=== PATIENT | male | born 1990 | race Caucasian/White ===

== ENCOUNTER → 2018-02-07 14:41 | Outpatient (CLI) | payer BC, SELFPAY ==
[2018-02-07 17:08] LABS: ALB/GLOB Ratio 1.1 RATIO (0.9-2.4); AST(SGOT) 9 U/L (15-37); Alanine Aminotransfer ALT/SGPT 20 U/L (16-61); Alkaline Phosphatase 95 U/L (45-117); Anion Gap 6 (5-15); BUN 16 mg/dL (7-18); BUN/Creat Ratio 18.7 RATIO (10-20); Calcium,Total 8.9 mg/dL (8.5-10.1); Chloride 105 mmol/L (98-107); Cholesterol 155 mg/dL (200); Creatinine, Serum 0.86 mg/dL (0.70-1.30); EST Glomerular Filtration Rate 115 mL/min (>60); Est Glom Filt Rate - Afr Amer 139 mL/min (>60); Globulin 3.5 g/dL (2.2-4.2); Glucose 243 mg/dL (74-106); High Density Lipoprotein 53 mg/dL; Potassium 4.2 mmol/L (3.5-5.1); Protein, Total 7.5 g/dL (6.4-8.2); Sodium Level 141 mmol/L (136-145); Triglycerides 53 mg/dL; Very Low Density Lipoprotein 11 mg/dL (5-40)
[2018-02-07 21:04] LABS: Microalbumin,Random Urine 18.7 mg/L (NO RANGE EST.); Microalbumin:Creatinine Ratio 10.3 mg/g CRE (<30 mg/g CRE)
[2018-02-07 21:32] LABS: Hemoglobin A1c 9.3 % (4.2-6.3)
== END ==
PROVIDERS: Visit Provider Nurse Practitioner
DX: E10.65 Type 1 diabetes mellitus with hyperglycemia (principal)
CPT/HCPCS: 36415; 80053; 80061; 82043; 82570; 83036

== ENCOUNTER 2018-04-08 20:16 | Emergency (ER) | payer BC, SELFPAY ==
[2018-04-08 20:16] VITALS: BP 141/83; PULSE 76; RESP 18; TEMP 36.9; O2SAT 98; BMI 25.7
--- NOTE | 2018-04-08 20:24 | ED.RN ---
RN CALLED FOR EKG, NO OLD EKGS IN MUSE
--- NOTE | 2018-04-08 20:30 | EKG12_ITS ---
Test Reason : CP Blood Pressure : / mmHG Vent. Rate : 080 BPM Atrial Rate : 080 BPM P-R Int : 150 ms QRS Dur : 084 ms QT Int : 372 ms P-R-T Axes : 049 048 019 degrees QTc Int : 429 ms Normal sinus rhythm Normal ECG Confirmed by AUDI OJEDA, EARL ([id number]), city editor YESSENIA CURTIS ([id number]) on 04/11/2018 9:02:38 AM Referred By: MARLENE Confirmed By:EARL HUNTLEY MD
--- NOTE | 2018-04-08 20:34 | RAD_ITS ---
STUDY: X-RAY CHEST REASON FOR EXAM: Male, 28 years old. Chest pain TECHNIQUE: Frontal view of the chest COMPARISON: None. FINDINGS: The lungs are clear. There are no pleural effusions. There is no pneumothorax. The heart is normal in size. The visualized osseous structures are within normal limits. RAD/Chest 1 View (Portable) IMPRESSION: No acute thoracic pathology. Electronically Signed: Aki Smith, at 20:51 EDT Tel , Service support ,
[2018-04-08 20:55] LABS: Absolute Lymphocyte Count 2.56 X10^3/ul (0.83-4.51); Absolute Neutrophil Count 3.3 X10^3/uL (2.0-7.7); Basophil# 0.02 X10^3/uL; Basophil% 0.3 % (0-1); Eosinophil# 0.06 X10^3/uL; Eosinophils% 0.9 % (0-5); Hematocrit 44.6 % (40-54); Hemoglobin 15.5 g/dl (13.0-16.5); Lymphocyte # 2.56 X10^3/ul (4.0); Lymphocyte % 38.9 % (19-41); Mean Corp Hgb Conc 34.8 g/gl (32-36); Mean Corpuscular Hgb 30.3 pg (27.0-32.0); Mean Corpuscular Volume 87.1 fL (80-94); Mean Platelet Vol. 9.6 fl (6.2-12.0); Monocyte% 9.1 % (0-10); Neutrophil # 3.32 X10^3/uL (2.7-7.7); Neutrophil % 50.5 % (47-70); Platelet Count 269 K/mm3 (150-450); RBC Distribution Width CV 11.6 % (11.6-14.6); RBC Distribution Width SD 36.9 fl (35.1-43.9); Red Blood Count 5.12 M/mm3 (4.6-6.2); White Blood Count 6.6 K/mm3 (4.4-11.0)
[2018-04-08 20:56] LABS: POSITIVE COUNT NO; POSITIVE DIFFERENTIAL NO; POSITIVE MORPHOLOGY NO
[2018-04-08 21:11] LABS: Anion Gap 7 (5-15); BUN 11 mg/dL (7-18); BUN/Creat Ratio 14.5 RATIO (10-20); Calcium,Total 8.8 mg/dL (8.5-10.1); Chloride 104 mmol/L (98-107); Creatinine, Serum 0.76 mg/dL (0.70-1.30); EST Glomerular Filtration Rate 132 mL/min (>60); Est Glom Filt Rate - Afr Amer 159 mL/min (>60); Estimated Creatinine Clearance 156.88 ml/min; Glucose 88 mg/dL (74-106); Potassium 3.3 mmol/L (3.5-5.1); Sodium Level 138 mmol/L (136-145)
--- NOTE | 2018-04-08 21:20 | ED.VISSUMM ---
- ER Visit Summary Date of Service: 04/08/18 Chief Complaint: Chest pain History of Present Illness: The patient is a 28 M who presented with chest pain. This is been present since yesterday. It has been intermittent. He describes it as sharp and stabbing in the center of his chest. There are no exacerbating or relieving factors. He currently actually has no pain. At its worst it has been 8 out of 10. There is no associated nausea vomiting shortness of breath or diaphoresis. The current episode began about 4 hours ago. He is a type I diabetic but denies any other medical history. No recent travel surgery mobilization of prior DVT or PE. He is not a smoker. There is not a family history of heart disease. Physical Examination: Afebrile vitals are normal Moist mucous membranes Heart regular rate and rhythm Lungs are clear Abdomen soft Extremities nontender 2+ radial and dorsalis pedis pulses Alert Test Results: EKG shows sinus rhythm at a rate of 80. CBC BMP normal. Troponin negative. Chest x-ray shows no acute pathology. Emergency Department Course and Treatment: Patient has an unremarkable workup. He is currently pain-free. He has normal EKG. I do not believe this is due to cardiac ischemia. His description of symptoms is atypical. He was advised to follow-up as an outpatient. He is currently asymptomatic. He does understand return for new or worsening symptoms. He was discharged. Treatment Plan: [] Disposition: Discharge Impression: Chest pain This note was generated with [employer] dictation software. It may contain incorrect words, spelling, and punctuation that were not noted in review of the chart prior to signing ED Disposition - Plan for ED Patient: Chief Complaint: Chest Pain Referrals: Care Physician,No Primary [Primary Care Provider] -
--- NOTE | 2018-04-08 21:22 | ED.DEP ---
ED Disposition - Plan for ED Patient: Chief Complaint: Chest Pain Instructions: ED Chest Pain NonCardiac Referrals: Care Physician,No Primary [Primary Care Provider] -
[2018-04-08 21:27] VITALS: BP 135/74; PULSE 80; RESP 14; O2SAT 98
== END 2018-04-08 21:30 | disposition home or self-care (01) ==
PROVIDERS: Emergency Provider Emergency Medicine
DX: R07.9 Chest pain, unspecified (principal); E10.9 Type 1 diabetes mellitus without complications
CPT/HCPCS: 71045; 80048; 84484; 85025; 93005; 99284

== ENCOUNTER → 2018-06-14 16:58 | Outpatient (CLI) | payer BC, SELFPAY ==
[2018-06-14 16:02] VITALS: BMI 26.8
[2018-06-14 18:08] LABS: Hemoglobin A1c 8.8 % (4.2-6.3)
[2018-06-14 18:12] LABS: ALB/GLOB Ratio 1.3 RATIO (0.9-2.4); AST(SGOT) 12 U/L (15-37); Alanine Aminotransfer ALT/SGPT 17 U/L (16-61); Albumin, Serum 4.2 g/dL (3.2-5.0); Alkaline Phosphatase 65 U/L (45-117); Anion Gap 7 (5-15); BUN 13 mg/dL (7-18); BUN/Creat Ratio 13.9 RATIO (10-20); Chloride 103 mmol/L (98-107); Creatinine, Serum 0.94 mg/dL (0.70-1.30); EST Glomerular Filtration Rate 103 mL/min (>60); Est Glom Filt Rate - Afr Amer 125 mL/min (>60); Globulin 3.2 g/dL (2.2-4.2); Glucose 326 mg/dL (74-106); Potassium 4.3 mmol/L (3.5-5.1); Protein, Total 7.4 g/dL (6.4-8.2); Sodium Level 138 mmol/L (136-145)
[2018-06-14 18:13] LABS: Microalbumin,Random Urine 5.4 mg/L (NO RANGE EST.)
--- OUTSIDE RECORDS SUMMARY | 2018-08-09 23:02 | XMS RPT_ITS ---
:1990 Author Organization [facility] Care Team Providers Name Role Phone Danielle Segundo HUMAN MACHINE INTERFACE ENGINEER-C Attending Unavailable Primay Care Physicia, No Referring Unavailable Primay Care Physicia, No Primary Care Unavailable Danielle Segundo HUMAN MACHINE INTERFACE ENGINEER-C Attending Unavailable Danielle Segundo HUMAN MACHINE INTERFACE ENGINEER-C Referring Unavailable Primay Care Physicia, No Primary Care Unavailable Primay Care Physicia, No Primary Care Unavailable Mati Reyes Attending Unavailable Danielle Segundo HUMAN MACHINE INTERFACE ENGINEER-C Attending Unavailable Primay Care Physicia, No Referring Unavailable Danielle Segundo HUMAN MACHINE INTERFACE ENGINEER-C Attending Unavailable Danielle Segundo HUMAN MACHINE INTERFACE ENGINEER-C Referring Unavailable Primay Care Physicia, No Primary Care Unavailable PROBLEMS PROBLEMS DATE TYPE CONDITION / CODE ATTENDING STATUS SOURCE 06/14/2018 Unknown E10.9 - Type 1 Sanya Danielle Garza Active [place] diabetes mellitus HUMAN MACHINE INTERFACE ENGINEER-C Formerly [facility] without Hospital complications / Repository E10.9(ICD-10) 2018 Unknown E10.65 - Type 1 Danielle Segundo Active [place] diabetes mellitus HUMAN MACHINE INTERFACE ENGINEER-C Formerly [facility] with hyperglycemia Hospital / E10.65(ICD-10) Repository PROCEDURES PROCEDURES No Procedure Records FoundRESULTS RESULTS ENDOCRINOLOGY VISIT Observed: 06/17/2018 Status: F Source: [place] REPORT 4:47 PM [facility] [address] [place] [address]. [address] [place] [address] OFFICE VISIT Date of Service: 06/14/18 MR#: [id number] Acct: [id number] Name: ELOISA CORDOVA Rep #: [id number] : 1990 Provider: Danielle Segundo NP Age/Sex: 28/M [place] [facility] [place] Signed HPI History of present illness History of present illness Gayle Cordova is a 28 year old male who presents for follow up of diabetes type 1. Diagnosed in 2002. Seen last 01/2018 Continues on basaglar 26 units daily and meal insulin 10- 12 units per meal. Sliding scale as needed. Pt denies difficulty with injections or self monitoring of BG. Denies any signs of infection or irritation at site of injections. Reports taking insulin as directed Since our last visit he denies excessive thirst, increased frequency of urination, chest pain or dyspnea. Follows a diabetic diet, Is compliant with medication and is tolerating without side effects. At time of visit: -Pt denies symptoms of hypertensive emergency (CP,SOB,JEWELL, or blurred vision) and hypotension(dizziness or lightheadedness) -Pt denies symptoms of hypoglycemia ( sweaty, confusion, anxiety, tremor, hunger, palpitations) and hyperglycemia ( polydipsia, polyuria) -Pt denies potential medication adverse effect. Hypoglycemia Aware of hypoglycemia: When awake Able to self treat low BG: Yes Frequent low Blood sugar: No Has supply of glucagon: Yes Diet 3meals Carb counts Occ snacks SMBG 4 BG daily 70-150 average, checks pre meal Job is very physical Exam Const General: comfortable, well groomed Nutritional Appearance: well nourished Orientation: oriented x3 HENMT Head: normal to inspection, atraumatic Ears: hearing grossly normal bilaterally Nose: external nose normal Face and sinus: normal facial exam Mouth: oral mucosae normal, moist mucous membranes Teeth and gingiva: dentition normal Eyes Eyelids: eyelids normal Conjunctivae: conjunctivae normal Sclera: sclerae normal Pupils: PERRL Neck Neck: full ROM, normal visual inspection Neck mass: No Resp Effort AND Inspection: normal respiratory effort, able to speak in complete sentences, symmetric chest movement Auscultation: Bilateral: Clear to Auscultation Cardio Rate: regular rate Rhythm: regular rhythm Heart Sounds: S1 normal, S2 normal, no murmurs GI Inspection: normal to inspection Auscultation: normal bowel sounds Palpation: soft Skin General: no rashes or lesions noted Wounds: no wounds Diabetic Foot Pulses: L dorsalis pedis pulse: normal, R dorsalis pedis pulse: normal Monofilament test: Left foot: normal, Right foot: normal Neuro General: CN's II-XI intact bilaterally Extrem General: normal gait Psych Mood: congruent mood Affect: normal affect Speech and Movement: speech and movement normal Attitude: cooperative Thought Process: normal Thought Content: normal Judgment: judgment good Type: type 1, insulin-requiring Glucose control symptoms: Reports high fasting glucose and high post-meal glucose Weight and fatigue symptoms: Denies snoring Cardiopulmonary symptoms: Denies chest pain at rest, dyspnea on exertion, lightheadedness or myalgias GI symptoms: Denies constipation, diarrhea, nausea/dyspepsia or vomiting Skin and extremity symptoms: Denies erectile dysfunction, tingling/numbness/burning or foot ulcers Other symptoms: Denies blurry vision or change in vision Pertinent visit history: Denies recent visit to ER, recent hospital admission or recent DKA Intake Vital Signs06/14/18 Height 5 ft 11 in 06/14/18 Weight: 192 lb 8 oz 06/14/18 Body Mass Index (BMI) 26.8 06/14/18 Blood Pressure 128/80 H 06/14/18 Blood Pressure Location Lt popliteal 06/14/18 Blood Pressure Position Sitting Intake Visit Reasons: Diabetes follow-up Correctional Case Manager Required: No Accompanied by: Self Allergies No Known Allergies Allergy (Verified 06/14/18 16:01) Medications glucagon (human recombinant) 1 mg injection kit 1 mg IM ONCE #1 ea 02/07/18 [Rx Confirmed 06/14/18] Insulin Aspart [Novolog Flexpen] See Rx Instructions SUBCUT TIDCM 04/08/18 [History Confirmed 06/14/18] insulin glargine (U-100) 100 unit/mL (3 mL) subcutaneous pen 28 unit SC DAILY ml 06/14/18 [History Confirmed 06/14/18] Nurse's Note: blood sugars : low : 59 high : 350 [facility] Medical History Anxiety (Acute) Back problem (Acute) Chronic neck and back pain (Acute) Type 1 diabetes mellitus (Acute) Unexplained weight loss (Acute) Surgical History Hx of appendectomy (Acute) Family History Mother Cancer Father Hypertension Grandmother Hypertension Social History Smoking Status: Never smoker second hand exposure: No alcohol intake: current alcohol intake frequency: a few times a month substance use type: does not use ROS Const Constitutional: No anorexia, body ache, chills, fatigue, fever(s), frequent falls, decreased energy, malaise, night sweats, weakness, weight change, sleep problems, abnormal sleep pattern, change in appetite, other, headache(s), snoring or excessive sweating Eyes Eyes: No blurry vision, change in vision, double vision, discharge, dry eyes, bulging eyes, floaters, visual disturbances, eye pain, light sensitivity, spots in vision, tunnel vision or other ENT ENT: No abnormal hearing, ear pain, ear discharge, ear pressure, hearing loss, tinnitus, dizziness/vertigo, balance problems, nosebleed/epistaxis, nasal congestion, nasal obstruction, nose pain, sinus pressure, sinus pain, nasal discharge, post nasal drip, headache(s), facial pain, dental pain, dry mouth, bad breath, hoarseness, lip swelling, mouth lesions, mouth pain, sore throat, tongue swelling, throat swelling, other, difficulty swallowing or neck pain Resp Respiratory: No cough, change in phlegm color, chest congestion, excessive phlegm production, hemoptysis, pain on inspiration, shortness of breath, pain with cough, snoring, stridor, wheezing or other Cardio Cardiology: No chest pain at rest, chest pain with exertion, leg pain with exertion, excessive sweating, shortness of breath, dyspnea on exertion, generalized swelling, irregular heart rhythm, lightheadedness, orthopnea, radiating jaw, neck or arm pain, fast heart rate, slow heart rate, palpitations or other Gastro GI: No abdominal pain, belching, bloating, change in bowel habits, change in stool character, coffee ground emesis, constipation, cramping, diarrhea, heartburn, difficulty swallowing, feeling full early, excessive flatus, incontinent of stools, Vomiting blood/hematemesis, blood in stool, loose stools, Black,tarry stools, nausea/dyspepsia, pain with swallowing, vomiting or other Genitourinary Male: No difficulty urinating, burning urination, painful urination, urinary incontinence, urinary frequency, urinary urgency, urinary hesitancy, urinary retention, blood in urine, Frequent nighttime urination/ nocturia, post void dribbling, suprapubic fullness, side pain, sexual problems, genital lesions, genital itching, erectile dysfunction, penile discharge, difficulty with ejaculations, blood in semen, scrotal swelling, testicle lump, testicle pain or other Musc Musculoskeletal: No abnormal walking, joint pain, back pain, deformity, joint swelling, limited range of motion, loss of height, muscle cramps, muscle weakness, decreased muscle mass, body aches, neck pain, numbness, radiating pain into limb, stiffness, tingling or other Skin Skin: No acne, hair loss, change in hair, nail changes, boil, change in skin color, dry skin, redness, excessive hair growth, yellowing of the skin, lesions, itching, rash, skin pain, skin ulcer, sores, skin swelling, wounds or other Breast Breast: No other Neuro Neurology: No frequent falls, weakness, visual disturbances, abnormal hearing, headache(s), abnormal walking, numbness or tingling Psych Psychiatric: No abnormal sleep pattern, No change in appetite Endo Endocrine: No fatigue, other or excessive sweating Aller/Imm Allergy/Immunologic: No lip swelling, tongue swelling, throat swelling, wheezing or itchy eyes Assessment AND Plan 1. Type 1 diabetes mellitus without complication E10.9 Plan Review of BG readings note he has best control on the days when he works his 12 hours shifts. He does decrease his meal coverage during his shift and is able to avoid low BG readings. On his days off he finds he is waking with high BG numbers. Need to determine if this is related to inadequate evening meal coverage or need for more basal. He does have BG checks at bedtime which notes meals are covered so will ask patient to increase his basaglar 1-2 units on days off. Labs due and will obtain today. Has been starting to work on healthier diet and lifestyle. BP controlled. Microalbumin in range. Orders Orders: Plan Detail Other Medications New: Additional Comments 1. Please schedule follow up in 3 months. 2. Lab work one week before appointment. 3. Discussed importance of regular exercise and recommend starting or continuing a regular exercise program for good health. 4. The patient was encouraged to lose weight for good health 5. The importance of monitoring blood sugar regularly was reviewed. 6. The importance of monitoring the HBA1c level regularly was reviewed. 7. The importance of prper foot care and regularly checking feet to prevent sores and loss of limbs was reviewed. 8. The importance of keeping BP at or below 130/80 to prevent stroke, heart attacks, kidney failure, blindness was reviewed. Spent approximately 30 minutes with patient with over 50% of time spent in discussion and counseling regarding medication adjustment, symptoms and treatment of hypoglycemia, diet adherence, and checking BG before driving. Coding Level of Care Code Off vis,est,level 4 Diagnoses Type 1 diabetes mellitus without complication E10.9 Diabetes mellitus type: type 1 Diabetes mellitus complication status: without complication 06/17/18 [id number] <Electronically signed by Danielle HERNANDEZ> Date Danielle HERNANDEZ Cosigner Signature: Date (if applicable) CC: HEMOGLOBIN A1C Collected: 06/14/2018 Status: F Source: [place] 5:07 PM [facility] TYPE CODE TESTS RESULT OUT OF RANGE REFERENCE UNITS LAB L501.9985 4.2-6.3 % High HGB A1C 8.8 Performed By: #### L501.9985 #### [facility] [place], [address] COMPREHENSIVE METABOLIC Collected: 06/14/2018 Status: F Source: [place] MOREIRA 5:07 PM [facility] TYPE CODE TESTS RESULT OUT OF RANGE REFERENCE UNITS LAB L501.0100 74-106 mg/dL High GLU 326 Result Comment: Glucose result greater than or equal to 200 mg/dL suggests DIABETES MELLITUS per A.D.A. criteria. Please note revised GLUCOSE reference range effective 2017. LAB L501.1000 7-18 mg/dL Normal BUN 13 LAB L501.1100 0.70-1.30 mg/dL Normal CREAT,SERUM 0.94 Result Comment: The validity of the calculated GFR AND GFRAA in patients over 70 years has not been determined. Clinical correlation is essential. LAB L501.1110 >60 mL/min Normal EST GFR 103 Result Comment: Non- GFR Calc LAB L501.1115 >60 mL/min Normal EST GFR - AA 125 Result Comment: GFR Calc LAB L501.1300 10-20 RATIO Normal BUN/CRE 13.9 LAB L501.1500 6.4-8.2 g/dL T Normal PROT 7.4 LAB L501.1800 3.2-5.0 g/dL Normal ALB 4.2 LAB L501.1950 2.2-4.2 g/dL Normal GLOB 3.2 LAB L501.2000 0.9-2.4 RATIO Normal A/G 1.3 LAB L501.2200 8.5-10.1 mg/dL CA Normal 9.0 LAB L501.4100 15-37 U/L Low AST 12 LAB L501.4305 45-117 U/L Normal ALK P 65 LAB L501.4405 16-61 U/L Normal ALT 17 LAB L501.4600 0.20-1.00 mg/dL T Normal BILI 0.50 LAB L501.5300 136-145 mmol/L NA Normal 138 LAB L501.5600 3.5-5.1 mmol/L K Normal 4.3 LAB L501.5900 98-107 mmol/L CL Normal 103 LAB L501.6100 21.0-32.0 mmol/L Normal CO2 28.0 LAB L501.6200 5-15 Normal GAP 7 Performed By: #### L500.4050 #### [facility] [address], [address] CREATININE, URINE Collected: 06/14/2018 Status: F Source: [place] (RANDOM) 5:07 PM [facility] TYPE CODE TESTS RESULT OUT OF RANGE REFERENCE UNITS LAB L501.1200 NO RANGE EST. mg/dL Normal UR CREAT 67.20 Performed By: #### L501.1200, L502.0500 #### [facility] [address] [facility] [place], [address] MICROALBUMIN,RANDOM URINE Collected: Status: F Source: [place] 06/14/2018 5:07 PM [facility] TYPE CODE TESTS RESULT OUT OF RANGE REFERENCE UNITS LAB L502.0500 NO RANGE EST. mg/L Normal 5.4 MICROALBUMIN ,UR Performed By: #### L501.1200, L502.0500 #### [facility] [address] [place], [address] 12 LEAD ELECTROCARDIOGRAM Observed: 04/11/2018 Status: F Source: [place] 9:02 AM [facility] Cardiovascular Services [address] [place] [address] 12 Lead EKG 04/08/182021 MR#: [id number] Acct: [id number] Name: ELOISA CORDOVA Rep #: [id number] : 1990 28 From: Markos Olsen MD Attending Dr: Status: DEP ER Ordering Dr: Mati Reyes MD Date: 04/08/18 Location: ED Sex: M C Admitted: Test Reason : CP Blood Pressure : / mmHG Vent. Rate : 080 BPM Atrial Rate : 080 BPM P-R Int : 150 ms QRS Dur : 084 ms QT Int : 372 ms P-R-T Axes : 049 048 019 degrees QTc Int : 429 ms Normal sinus rhythm Normal ECG Confirmed by MARKOS OLSEN MD ([id number]), scientific publications editor YESSENIA CURTIS ([id number]) on 04/11/2018 9:02:38 AM Referred By: MARLENE Confirmed By:MARKOS OLSEN MD 04/11/18 0902 Date Markos Olsen MD CC: No Primary Care Physician; Mati Reyes MD Signed EMERGENCY DEPARTMENT Observed: 04/08/2018 Status: F Source: [place] SUMMARY 9:22 PM [facility] Medical Records Department [address] [place] [address] Emergency Department Summary 04/08/182119 MR#: [id number] Acct: [id number] Name: ELOISA CORDOVA Rep #: [id number] : 1990 From: Mati Reyes MD PCP: Care Physician, No Primary Status: PRE ER - ER Visit Summary Date of Service: 04/08/18 Chief Complaint: Chest pain History of Present Illness: The patient is a 28 M who presented with chest pain. This is been present since yesterday. It has been intermittent. He describes it as sharp and stabbing in the center of his chest. There are no exacerbating or relieving factors. He currently actually has no pain. At its worst it has been 8 out of 10. There is no associated nausea vomiting shortness of breath or diaphoresis. The current episode began about 4 hours ago. He is a type I diabetic but denies any other medical history. No recent travel surgery mobilization of prior DVT or PE. He is not a smoker. There is not a family history of heart disease. Physical Examination: Afebrile vitals are normal Moist mucous membranes Heart regular rate and rhythm Lungs are clear Abdomen soft Extremities nontender 2+ radial and dorsalis pedis pulses Alert Test Results: EKG shows sinus rhythm at a rate of 80. CBC BMP normal. Troponin negative. Chest x-ray shows no acute pathology. Emergency Department Course and Treatment: Patient has an unremarkable workup. He is currently pain-free. He has normal EKG. I do not believe this is due to cardiac ischemia. His description of symptoms is atypical. He was advised to follow- up as an outpatient. He is currently asymptomatic. He does understand return for new or worsening symptoms. He was discharged. Treatment Plan: [] Disposition: Discharge Impression: Chest pain This note was generated with [employer] dictation software. It may contain incorrect words, spelling, and punctuation that were not noted in review of the chart prior to signing ED Disposition - Plan for ED Patient: Chief Complaint: Chest Pain Referrals: Care Physician,No Primary [Primary Care Provider] - What to do if you have Problems For any increased pain, shortness of breath, bleeding, nausea or vomiting, chest pain, or any unexpected problems, contact your Primary Care Provider. Call [facility] ([phone]) or report to the closest Emergency Room. Call 911 if necessary. 04/08/182121 <Electronically signed by Mati Reyes MD> Date Mati Reyes MD Cosigner Signature (If Indicated): Date CC: No Primary Care Physician DISCHARGE INSTRUCTION Observed: 04/08/2018 Status: F Source: [place] 9:22 PM [facility] Medical Records Department [address] [place] [address] Discharge Instruction 04/08/182121 MR#: [id number] Acct: [id number] Name: ELOISA CORDOVA Rep #: [id number] : 1990 28 From: Mati Reyes MD PCP: Juan M Physician, No Primary Status: PRE ER ED Disposition - Plan for ED Patient: Chief Complaint: Chest Pain Instructions: ED Chest Pain NonCardiac Referrals: Care Physician,No Primary [Primary Care Provider] - What to do if you have Problems For any increased pain, shortness of breath, bleeding, nausea or vomiting, chest pain, or any unexpected problems, contact your Primary Care Provider. Call [facility] ([phone]) or report to the closest Emergency Room. Call 911 if necessary. 04/08/182121 <Electronically signed by Mati Reyes MD> Date Mati Reyes MD Cosigner Signature (If Indicated): Date CC: No Primary Care Physician CHEST 1 VIEW Observed: 04/08/2018 Status: F Source: [place] (PORTABLE) 8:30 PM [facility] Imaging Services [address] [place] [address] [place] [address] Chest 1 View (Portable) MR#: [id number] Acct: [id number] Name: ELOISA CORDOVA Rep #: [id number] : 1990 M 28 From: Aki Smith MD PCP: Care Physician, No Primary Status: PRE ER Study: Chest 1 View (Portable) Date of Exam: 04/08/18 Exam# [id number] Ordering Dr: Provider, Ed P. STUDY: X-RAY CHEST REASON FOR EXAM: Male, 28 years old. Chest pain TECHNIQUE: Frontal view of the chest COMPARISON: None. FINDINGS: The lungs are clear. There are no pleural effusions. There is no pneumothorax. The heart is normal in size. The visualized osseous structures are within normal limits. RAD/Chest 1 View (Portable) IMPRESSION: No acute thoracic pathology. Electronically Signed: Aki Smith, at 20:51 EDT Tel , Service support , CC: No Primary Care Physician; ED PHYSICIAN PROVIDER Decorating Inspector: Signed CBC W/DIFF, AUTOMATED Collected: 04/08/2018 Status: F Source: [place] 8:25 PM [facility] TYPE CODE TESTS RESULT OUT OF RANGE REFERENCE UNITS LAB L100.1000 4.4-11.0 K/mm3 Normal WBC 6.6 LAB L100.1200 4.6-6.2 M/mm3 Normal RBC 5.12 LAB L100.1300 13.0-16.5 g/dl Normal HGB 15.5 LAB L100.1400 40-54 % Normal HCT 44.6 LAB L100.1500 80-94 fL Normal MCV 87.1 LAB L100.1600 27.0-32.0 pg Normal MCH 30.3 LAB L100.1700 32-36 g/gl Normal MCHC 34.8 LAB L100.1810 11.6-14.6 % Normal RDW CV 11.6 LAB L100.1820 35.1-43.9 fl Normal RDW SD 36.9 LAB L100.1900 150-450 K/mm3 Normal PLT 269 LAB L100.2000 6.2-12.0 fl Normal MPV 9.6 LAB L100.2100 47-70 % Normal NEUT% 50.5 LAB L100.2200 19-41 % Normal LY% 38.9 LAB L100.2300 0-10 % Normal MONO% 9.1 LAB L100.2400 0-5 % Normal EO% 0.9 LAB L100.2500 0-1 % Normal BASO% 0.3 LAB L100.2550 0.0-0.9 % Normal IM GRAN % 0.300 Result Comment: IG% - Immature Granulocytes (promyelocytes, myelocytes and metamyelocytes) > 1% indicates that a LEFT SHIFT is Present. LAB L100.2620 2.0-7.7 X10 3/uL Normal Absolute Neut 3.3 LAB L100.2720 0.83-4.51 X10 3/ul Normal Absolute Lymph 2.56 Performed By: #### L100.0100, L500.2500, L501.4010 #### [facility] [address] [place], [place], [id number] BASIC METABOLIC Collected: 04/08/2018 Status: F Source: [place] PROFILE (BMP) 8:25 PM [facility] TYPE CODE TESTS RESULT OUT OF RANGE REFERENCE UNITS LAB L501.0100 74-106 mg/dL Normal GLU 88 Result Comment: Please note revised GLUCOSE reference range effective 2017. LAB L501.1000 7-18 mg/dL Normal BUN 11 LAB L501.1100 0.70-1.30 mg/dL Normal CREAT,SERUM 0.76 Result Comment: The validity of the calculated GFR AND GFRAA in patients over 70 years has not been determined. Clinical correlation is essential. LAB L501.1110 >60 mL/min Normal EST GFR 132 Result Comment: Non- GFR Calc LAB L501.1115 >60 mL/min Normal EST GFR - AA 159 Result Comment: GFR Calc LAB L501.1255 ml/min Normal Estimated CRCL 156.88 LAB L501.1300 10-20 RATIO BUN/CRE Normal 14.5 LAB L501.2200 8.5-10 mg/dL .1 CA Normal 8.8 LAB L501.5300 136-14 mmol/L 5 NA Normal 138 LAB L501.5600 3.5-5. mmol/L Low 1 K 3.3 LAB L501.5900 98-107 mmol/L CL Normal 104 LAB L501.6100 21.0-3 mmol/L 2.0 CO2 Normal 27.0 LAB L501.6200 5-15 GAP Normal 7 Performed By: #### L100.0100, L500.2500, L501.4010 #### [facility] [facility] [place], [address] TROPONIN-I Collected: 04/08/2018 Status: F Source: [place] 8:25 PM [facility] TYPE CODE TESTS RESULT OUT OF RANGE REFERENCE UNITS LAB L501.4010 <0.045 ng/mL Normal < 0.015 TROPONIN-I Result Comment: TROPONIN-I EXPECTED VALUES <0.045 Negative 0.045 - 0.590 Consistent with Cardiac Damage > OR = 0.600 Critical Value Not every elevated troponin is indicative of FL. These values should be used with clinical judgement in examining the patient's clinical picture for diagnosis. To establish a diagnosis of FL versus myocardial injury, there must be a demonstrated rise and/or fall in the troponin values, in addition to ischemic symptoms, EKG changes, new regional wall motion abnormality, and/or angiographical evidence. PLEASE NOTE: REFERENCE RANGES EDITED 17 Performed By: #### L100.0100, L500.2500, L501.4010 #### [facility] [address] [place], [address] ENDOCRINOLOGY VISIT Observed: 02/24/2018 Status: F Source: [place] REPORT 10:26 AM [facility] [address] [place] [address] OFFICE VISIT Date of Service: 02/07/18 MR#: [id number] Acct: [id number] Name: ELOISA CORDOVA Rep #: [id number] : 1990 Provider: Danielle Segundo NP Age/Sex: 28/M Location: [facility] [place] Status: Signed HPI History of present illness Gayle Cordova is a 28 year old male who presents for follow up of diabetes type 1. Diagnosed in 2002. Seen last 03/2017. Continues on basaglar 26 units daily and meal units per meal. Sliding scale as needed. Pt denies difficulty with injections or self monitoring of BG. Denies any signs of infection or irritation at site of injections. Reports taking insulin as directed Since our last visit he denies excessive thirst, increased frequency of urination, chest pain or dyspnea. Follows a diabetic diet, Is compliant with medication and is tolerating without side effects. At time of visit: -Pt denies symptoms of hypertensive emergency (CP,SOB,JEWELL, or blurred vision) and hypotension(dizziness or lightheadedness) -Pt denies symptoms of hypoglycemia ( sweaty, confusion, anxiety, tremor, hunger, palpitations) and hyperglycemia ( polydipsia, polyuria) -Pt denies potential medication adverse effect. Hypoglycemia Aware of hypoglycemia: When awake Able to self treat low BG: Yes Frequent low Blood sugar: No Has supply of glucagon: Yes Diet 3meals Carb counts Occ snacks SMBG 4 BG daily 70-150 average, checks pre meal Job is very physical Type: type 1, insulin-requiring Glucose control symptoms: Reports hypoglycemic with activity Weight and fatigue symptoms: Denies snoring Cardiopulmonary symptoms: Denies chest pain at rest, dyspnea on exertion, lightheadedness or myalgias GI symptoms: Denies constipation, diarrhea, nausea/dyspepsia or vomiting Skin and extremity symptoms: Denies erectile dysfunction Other symptoms: Denies blurry vision or change in vision Pertinent visit history: Denies recent visit to ER or recent DKA Self monitoring: Yes Diabetes education in past year: Yes Glucose testing: demonstrates correct use of meter, understands testing schedule Sick day education - understands ketone testing: Yes Physical activity: regular Exam Const General: comfortable, well groomed Nutritional Appearance: well nourished Orientation: oriented x3 HENWA Head: normal to inspection, atraumatic Ears: hearing grossly normal bilaterally Nose: external nose normal Face and sinus: normal facial exam Mouth: oral mucosae normal, moist mucous membranes Teeth and gingiva: dentition normal Eyes Eyelids: eyelids normal Conjunctivae: conjunctivae normal Sclera: sclerae normal Pupils: PERRL Neck Neck: full ROM, normal visual inspection Neck mass: No Resp Effort AND Inspection: normal respiratory effort, able to speak in complete sentences, symmetric chest movement Auscultation: Bilateral: Clear to Auscultation Cardio Rate: regular rate Rhythm: regular rhythm Heart Sounds: S1 normal, S2 normal, no murmurs GI Inspection: normal to inspection Auscultation: normal bowel sounds Palpation: soft Skin General: no rashes or lesions noted Wounds: no wounds Diabetic Foot Pulses: L dorsalis pedis pulse: normal, R dorsalis pedis pulse: normal Monofilament test: Left foot: normal, Right foot: normal Neuro General: CN's II-XI intact bilaterally Extrem General: normal gait Psych Mood: congruent mood Affect: normal affect Speech and Movement: speech and movement normal Attitude: cooperative Thought Process: normal Thought Content: normal Judgment: judgment good Intake Vital Signs02/07/18 Height 5 ft 11 in 02/07/18 Weight: 189 lb 02/07/18 Body Mass Index (BMI) 26.3 02/07/18 Blood Pressure 114/79 02/07/18 Blood Pressure Location Lt popliteal 02/07/18 Blood Pressure Position Sitting Intake Visit Reasons: 6 M FU Correctional Case Manager Required: No Accompanied by: Self Is patient in pain?: No Allergies No Known Allergies Allergy (Verified 02/07/18 13:50) Medications glucagon (human recombinant) 1 mg injection kit 1 mg IM ONCE #1 ea 02/07/18 [Rx Confirmed 02/07/18] insulin aspart U-100 100 unit/mL subcutaneous pen See Label Instructions SC TID ml 02/07/18 [History] insulin glargine (U-100) 100 unit/mL (3 mL) subcutaneous pen 26 unit SC .q hs ml 02/07/18 [History Confirmed 02/07/18] Nurse's Note: blood sugars : low : 60 high : 350 PFSH Medical History Anxiety (Acute) Back problem (Acute) Chronic neck and back pain (Acute) Type 1 diabetes mellitus (Acute) Unexplained weight loss (Acute) Surgical History Hx of appendectomy (Acute) Family History Mother Cancer Father Hypertension Grandmother Hypertension Social History Smoking Status: Never smoker second hand exposure: No alcohol intake: current alcohol intake frequency: a few times a month substance use type: does not use ROS Const Constitutional: No anorexia, body ache, chills, fatigue, fever(s), frequent falls, decreased energy, malaise, night sweats, weakness, weight change, sleep problems, abnormal sleep pattern, change in appetite, other, headache(s), snoring or excessive sweating Eyes Eyes: No blurry vision, change in vision, double vision, discharge, dry eyes, bulging eyes, floaters, visual disturbances, eye pain, light sensitivity, spots in vision, tunnel vision or other ENT ENT: No abnormal hearing, ear pain, ear discharge, ear pressure, hearing loss, tinnitus, dizziness/vertigo, balance problems, nosebleed/epistaxis, nasal congestion, nasal obstruction, nose pain, sinus pressure, sinus pain, nasal discharge, post nasal drip, headache(s), facial pain, dental pain, dry mouth, bad breath, hoarseness, lip swelling, mouth lesions, mouth pain, sore throat, tongue swelling, throat swelling, other, difficulty swallowing or neck pain Resp Respiratory: No cough, change in phlegm color, chest congestion, excessive phlegm production, hemoptysis, pain on inspiration, shortness of breath, pain with cough, snoring, stridor, wheezing or other Cardio Cardiology: No chest pain at rest, chest pain with exertion, leg pain with exertion, excessive sweating, shortness of breath, dyspnea on exertion, generalized swelling, irregular heart rhythm, lightheadedness, orthopnea, radiating jaw, neck or arm pain, fast heart rate, slow heart rate, palpitations or other Gastro GI: No abdominal pain, belching, bloating, change in bowel habits, change in stool character, coffee ground emesis, constipation, cramping, diarrhea, heartburn, difficulty swallowing, feeling full early, excessive flatus, incontinent of stools, Vomiting blood/hematemesis, blood in stool, loose stools, Black,tarry stools, nausea/dyspepsia, pain with swallowing, vomiting or other Genitourinary Male: No difficulty urinating, burning urination, painful urination, urinary incontinence, urinary frequency, urinary urgency, urinary hesitancy, urinary retention, blood in urine, Frequent nighttime urination/ nocturia, post void dribbling, suprapubic fullness, side pain, sexual problems, genital lesions, genital itching, erectile dysfunction, penile discharge, difficulty with ejaculations, blood in semen, scrotal swelling, testicle lump, testicle pain or other Musc Musculoskeletal: No abnormal walking, joint pain, back pain, deformity, joint swelling, limited range of motion, loss of height, muscle cramps, muscle weakness, decreased muscle mass, body aches, neck pain, numbness, radiating pain into limb, stiffness, tingling or other Skin Skin: No acne, hair loss, change in hair, nail changes, boil, change in skin color, dry skin, redness, excessive hair growth, yellowing of the skin, lesions, itching, rash, skin pain, skin ulcer, sores, skin swelling, wounds or other Breast Breast: No other Neuro Neurology: No frequent falls, weakness, visual disturbances, abnormal hearing, headache(s), abnormal walking, numbness or tingling Psych Psychiatric: No abnormal sleep pattern, No change in appetite Endo Endocrine: No fatigue, other or excessive sweating Aller/Imm Allergy/Immunologic: No lip swelling, tongue swelling, throat swelling, wheezing or itchy eyes Assessment AND Plan Problems 1. diabetes type 1 uncontrolled without complication Plan A1c higher than documented Bg suggesting BG high post meal. Patient is ask to check Bg in pairs so we can determine which meals need better coverage. BP in range. Renal function in range Chol not at goal. Enc statin. Not interested at this visit Still enc to give consideration. Eye exam every year Patient needs to been seen on more regular basis than he is currently being seen. I have repeatedly ask him to follow on 3 month schedule. Orders Orders: Medications New: Discontinued: insulin glargine (U-100) (Shayna BarnardikPe26 units (0.26 mL) Sub-Q QHS E10.9 Omayra Franklin n U-100 Insulin) inject 26 units daily Discontinued Reason: Order Changed Plan Detail Additional Comments 1. Please schedule follow up in 3 months. 2. Lab work one week before appointment. 3. Discussed importance of regular exercise and recommend starting or continuing a regular exercise program for good health. 4. The patient was encouraged to lose weight for good health 5. The importance of monitoring blood sugar regularly was reviewed. 6. The importance of monitoring the HBA1c level regularly was reviewed. 7. The importance of proper foot care and regularly checking feet to prevent sores and loss of limbs was reviewed. 8. The importance of keeping BP at or below 130/80 to prevent stroke, heart attacks, kidney failure, blindness was reviewed. Spent approximately 45 minutes with patient with over 50% of time spent in discussion and counseling regarding medication adjustment, symptoms and treatment of hypoglycemia, diet adherence, and checking BG before driving. Coding Level of Care Code Off vis,est,level 4 Diagnoses diabetes type 1 uncontrolled without complication 02/24/18 1026 <Electronically signed by Danielle HERNANDEZ> Date Danielle HERNANDEZ Cosigner Signature: Date (if applicable) CC: COMPREHENSIVE METABOLIC Collected: 2018 Status: F Source: [place] 2:47 PM [facility] [facility] TYPE CODE TESTS RESULT OUT OF RANGE REFERENCE UNITS LAB L501.0100 74-106 mg/dL High GLU 243 Result Comment: Glucose result greater than or equal to 200 mg/dL suggests DIABETES MELLITUS per A.D.A. criteria. Please note revised GLUCOSE reference range effective 2017. LAB L501.1000 7-18 mg/dL Normal BUN 16 LAB L501.1100 0.70-1.30 mg/dL Normal CREAT,SERUM 0.86 Result Comment: The validity of the calculated GFR AND GFRAA in patients over 70 years has not been determined. Clinical correlation is essential. LAB L501.1110 >60 mL/min Normal EST GFR 115 Result Comment: Non- GFR Calc LAB L501.1115 >60 mL/min Normal EST GFR - AA 139 Result Comment: GFR Calc LAB L501.1300 10-20 RATIO Normal BUN/CRE 18.7 LAB L501.1500 6.4-8.2 g/dL T Normal PROT 7.5 LAB L501.1800 3.2-5.0 g/dL Normal ALB 4.0 LAB L501.1950 2.2-4.2 g/dL Normal GLOB 3.5 LAB L501.2000 0.9-2.4 RATIO Normal A/G 1.1 LAB L501.2200 8.5-10.1 mg/dL CA Normal 8.9 LAB L501.4100 15-37 U/L Low AST 9 LAB L501.4305 45-117 U/L Normal ALK P 95 LAB L501.4405 16-61 U/L Normal ALT 20 LAB L501.4600 0.20-1.00 mg/dL T Normal BILI 0.40 LAB L501.5300 136-145 mmol/L NA Normal 141 LAB L501.5600 3.5-5.1 mmol/L K Normal 4.2 LAB L501.5900 98-107 mmol/L CL Normal 105 LAB L501.6100 21.0-32.0 mmol/L Normal CO2 30.0 LAB L501.6200 5-15 Normal GAP 6 Performed By: #### L500.4050, L500.4100 #### [facility] [address] [place], [address] LIPID PROFILE Collected: 2018 Status: F Source: [place] 2:47 PM [facility] [place] [facility] TYPE CODE TESTS RESULT OUT OF RANGE REFERENCE UNITS LAB L501.4900 200 mg/dL Normal CHOL 155 Result Comment: <200 mg/dL Desirable 200-240 mg/dL Borderline >240 mg/dL High Risk LAB L501.5000 mg/dL Normal TRIG 53 Result Comment: The drugs N-Acetylcysteine and Metamizole may falsely depress this assay. Serum Triglycerides Reference Interval Normal <150 mg/dL Borderline high 150 - 199 mg/dL High 200 - 499 mg/dL Very High > or = 500 mg/dL LAB L501.6400 mg/dL Normal HDL 53 Result Comment: The drugs N-Acetylcysteine and Metamizole may falsely depress this assay. Reference Range HDL <40 mg/dL Low HDL Cholesterol HDL >or= 60 mg/dL High HDL Cholesterol LAB L501.6500 0-130 mg/dL Normal LDL 91 LAB L501.6600 5-40 mg/dL Normal VLDL 11 Performed By: #### L500.4050, L500.4100 #### [facility] [address] [place], [address] MICROALB:CREAT Collected: 2018 Status: F Source: [place] RATIO,RANDOM UR 2:47 PM [facility] [facility] TYPE CODE TESTS RESULT OUT OF RANGE REFERENCE UNITS LAB L501.1200 NO RANGE EST. mg/dL Normal UR CREAT 181.00 LAB L502.0500 NO RANGE EST. mg/L Normal 18.7 MICROALBUMIN ,UR LAB L502.0600 <30 mg/g CRE mg/g CRE Normal 10.3 MALB:CREAT Performed By: #### L502.0250, L501.9985 #### [facility] [address] [place], [place], [address] HEMOGLOBIN A1C Collected: 2018 Status: F Source: [place] 2:47 PM [facility] [place] [facility] TYPE CODE TESTS RESULT OUT OF RANGE REFERENCE UNITS LAB L501.9985 4.2-6.3 % High HGB A1C 9.3 Performed By: #### L502.0250, L501.9985 #### [facility] [address] [place], [address] ALLERGIES ALLERGIES DATE TYPE / CODE NAME / CODE REACTION SEVERITY SOURCE 06/14/2018 Drug No Known Unknown [facility] Allergy/4160 Allergies/F00 Hospital 12649(SNOMED [id number](RXNOR Repository CT) M) ENCOUNTERS ENCOUNTERS ADMIT/DISCHARGE ACCOUNT ADMITTING ENCOUNTER LOCATION SOURCE NUMBER CLASS 06/14/2018 [id number] Ambulatory [place] 6 [facility] ing:LAB Repository 06/14/2018/ [id number] Ambulatory BMSBuilding:B [place] 8 5 MS.MAMTA [facility] Repository 04/08/2018/ [id number] Emergency [place] 8 3 [facility] ing:ED Repository 2018 [id number] Ambulatory [place] 9 [facility] ing:LAB Repository 02/07/2018/ [id number] Ambulatory BMSBuilding:B [place] 8 [facility] PAYERS PAYERS ENCOUNTER GUARANTOR PAYER SUBSCRIBER SOURCE 06/14/2018 ELOISA Beckwith Primary ELOISA [place] [id number] [place] Insurance:ANTHEMPolic DAILDOB: [facility] [place] Number: [id number] Hospital 28726Cdw: 330 [id number] Repository [phone] () leo Date:2812-15-37MS [address] [place] [address] 22338SX: 06/14/2018 Secondary NOT GIVENUNK [place] Insurance:SELF PAY [facility] Number: Effective Repository Date:2018-06-14 06/14/2018 ELOISA Beckwith Primary ELOISA [place] [id number] [place] Insurance:ANTHEMPolic DAILDOB: [facility] [place] y Number: [id number] Hospital [id number]: (330) [id number] Repository [phone] () elo Date:8521-07-12OS [address] [place] [address] 02534TE: 06/14/2018 Secondary NOT GIVENUNK [place] Insurance:SELF PAY [facility] Number: Effective Repository Date:2018-06-14 04/08/2018 ELOISA Beckwith Primary ELOISA [place] [id number] [place] Insurance:ANTHEMPolic DAILDOB: [facility] [place] Number: [id number] Hospital 355[address]Nfl: (330) [id number] Repository [phone] () leo Date:1486-81-70[address], [place] [address]KB: 04/08/2018 Secondary NOT GIVENUNK [place] Insurance:SELF PAY [facility] Number: Effective Repository Date:2018-04-08 2018 ELOISA [id number] Primary ELOISA CROWDEROB: [place] Insurance:ANTHEMPolic [id number] Number[facility] [address]Vtw: [id number] Repository leo Date:8947-98-26KN () [address], [place] [address]EX: 2018 Secondary NOT GIVENUNK [place] Insurance:SELF PAY [facility] Number: Effective Repository Date:2018 2018 ELOISA [id number] Primary ELOISA CROWDEROB: [place] [id number] Number: [facility] [address]Qlb: [id number] Repository leo Date:4547-61-37RP () [address], [place] [address]WF: 2018 Secondary NOT GIVENUNK [place] Insurance:SELF PAY [facility] Number: Effective Repository Date:2018
== END ==
PROVIDERS: Referring Provider Nurse Practitioner; Visit Provider Nurse Practitioner
DX: E10.9 Type 1 diabetes mellitus without complications (principal)
CPT/HCPCS: 80053; 82043; 82570; 83036

== ENCOUNTER → 2018-07-23 10:51 | Outpatient (CLI) | payer BC, SELFPAY ==
[2018-07-21 10:11] VITALS: BMI 26.8
--- NOTE | 2018-07-23 10:55 | RAD_ITS ---
STUDY: X-RAY - LUMBAR SPINE REASON FOR EXAM: Male, 28 years old. Pain. TECHNIQUE: 5 view(s) of the lumbar spine were obtained. COMPARISON: None FINDINGS: Normal lumbar lordosis. There is no substantial scoliosis. There is a normal alignment of the vertebrae. Normal vertebral bodies and endplates. Normal disc space heights. The soft tissue structures are unremarkable. RAD/L/S Spine Min 4 Views IMPRESSION: Within normal limits x-ray examination of the lumbar spine. Electronically Signed: Yue Watts MD at 20:55 EST Tel , Service support ,
== END ==
PROVIDERS: Referring Provider Nurse Practitioner Gerontology; Visit Provider Nurse Practitioner Gerontology
DX: M54.9 Dorsalgia, unspecified (principal)
CPT/HCPCS: 72110

== ENCOUNTER 2018-08-01 12:00 | Outpatient (RCR) | payer BC, SELFPAY ==
[2018-07-21 10:11] VITALS: BMI 26.8
--- NOTE | 2018-09-20 11:51 | HP.PT.NRP ---
HP - Discharge Summary (1) - Patient Information ELOISA CORDOVA was seen in my office for initial evaluation on . The following Plan of Care was established for this patient: This patient was last seen in our office 08/01/17. Pertinent comments regarding their Physical therapy will appear below: Pt. has not been seen since his initial visit in which he wanted to hold, and possibly do self pay DN. Pt. has not been seen since and will be DC from PT at this point in time. At this point I will be discontinuing this patient from physical therapy. I would be happy to see this patient again in the future if found appropriate by the physician. Thank you! CHERYL JoyaT
--- OUTSIDE RECORDS SUMMARY | 2018-10-06 08:04 | XMS RPT_ITS | Continuity of Care Document ---
:1990 Author Organization [facility] Address [facility] [address] [place] [address] Phone Care Team Providers Name Role Phone Gemma Dao CNP Unavailable Ray Debbie LINDER Unavailable Thomas Galvan Unavailable Unavailable Problems Name Dates Details Abdominal pain (R10.9, 789.00) Status: Active Back pain (M54.9, 724.5) Status: Active BMI 30.0-30.9,adult (Z68.30, V85.30) Status: Active Body aches (R52, 780.96) Status: Active Dehydration (E86.0, 276.51) Status: Active Diabetes mellitus type 1, controlled (E10.9, 250.01) Status: Active Diarrhea (R19.7, 787.91) Status: Active Glucosuria (R81, 791.5) Status: Active Muscle spasm (M62.838, 728.85) Status: Active Nonsmoker (Z78.9, V49.89) Status: Active Sore throat (J02.9, 462) Status: Active Unspecified Diagnosis Status: Active Wart (B07.9, 078.10) Comments: will do cryotherapy went over risk and benefits. risk of bleeding infection deformaity of nasal openning. will do cry and if need repeat because still there i 3 weeks follow up Status: Active Medications Name Dates Details LANTUS SOLOSTAR, 100UNIT/ML (Subcutaneous Solution) Active 24 units qhs (100 UNIT/ML) NovoLOG FlexPen Active 40-50 units tid with meals CIPROFLOXACIN HCL, 500MG (Oral Tablet) 1 (one) Tablet bid for 7 days Quantity: 14 {QS} Refills: 0 Ordered:16-Jun-2015 Gemma Dao CNP, CNP, Mary E Start : 16-Jun-2015 End : 23-Jun-2015 Inactive ZITHROMAX Z-AUGUSTIN, 250MG (Oral Tablet) tad Tablet qd for 0 days Quantity: 1 {package(s)} Refills: 0 Ordered:12-Jul-2013 BRYAN Oh Start : 28-Nov-2012 End : 12-Jul-2013 Inactive Allergies and Adverse Reactions Name Dates Details No Known Allergies (Allergy) Onset: 28-Nov-2012 Status: Inactive No Known Drug Allergies (Allergy) Onset: 28-Nov-2012 Status: Inactive Social History Name Dates Details Alcohol Use Comments: rarely Status: Active Caffeine Use Comments: 1-2 cups qd Status: Active Current Work/Study Status: Full-time. Comments: [employer] Status: Active Exercise History: Exercises occasionally. Status: Active Living Situation: Lives with domestic partner. Status: Active No Drug Use Status: Active Tobacco use: Never smoker. Status: Active Smoking Status Name Dates Details Never smoker Vital Signs Date Test Result Details 2-Pdz-643875:10 Temperature 97.1 f Comments: Method: Temporal Pulse 86 /min Comments: Pattern: Regular Respiration Rate 18 /min Comments: Pattern: Unlabored O2 SAT 97 % Comments: Room air BP Systolic 116 mm[Hg] Comments: Patient Position: Sitting; Cuff Location: Left Arm; Cuff Size: Standard BP Diastolic 78 mm[Hg] Comments: Patient Position: Sitting; Cuff Location: Left Arm; Cuff Size: Standard Weight 198.25 lb Height 68 in Body Mass Index Calculated 30.14 kg/m2 Body Surface Area Calculated 2.04 m2 1-Wlp-841929:33 Temperature 97.6 f Pulse 75 /min Comments: Pattern: Regular Respiration Rate 16 /min Comments: Pattern: Unlabored O2 SAT 98 % Comments: Room air BP Systolic 118 mm[Hg] Comments: Patient Position: Sitting; Cuff Location: Left Arm; Cuff Size: Standard BP Diastolic 84 mm[Hg] Comments: Patient Position: Sitting; Cuff Location: Left Arm; Cuff Size: Standard Weight 198.25 lb Height 68 in Body Mass Index Calculated 30.14 kg/m2 Body Surface Area Calculated 2.04 m2 :55 Comments: blood glucose was 278 then we rechecked it and it was 272 then patient was instructed to take 3 units of novlog pen will recheck blood suger in 20 minutes SWAPNA Arreola Temperature 96.1 f Pulse 99 /min Comments: Pattern: Regular Respiration Rate 18 /min Comments: Pattern: Unlabored O2 SAT 82 % Comments: Room air BP Systolic 126 mm[Hg] Comments: Patient Position: Sitting; Cuff Location: Left Arm; Cuff Size: Standard BP Diastolic 80 mm[Hg] Comments: Patient Position: Sitting; Cuff Location: Left Arm; Cuff Size: Standard Weight 195 lb Height 68 in Body Mass Index Calculated 29.65 kg/m2 Body Surface Area Calculated 2.02 m2 :15 Temperature 97.9 f Comments: Method: Oral Pulse 74 /min Comments: Pattern: Regular Respiration Rate 20 /min Comments: Pattern: Unlabored BP Systolic 118 mm[Hg] Comments: Patient Position: Sitting; Cuff Location: Left Arm; Cuff Size: Standard BP Diastolic 74 mm[Hg] Comments: Patient Position: Sitting; Cuff Location: Left Arm; Cuff Size: Standard Weight 185 lb Height 68 in Body Mass Index Calculated 28.13 kg/m2 Body Surface Area Calculated 1.98 m2 :06 Temperature 97.9 f Comments: Method: Oral Pulse 78 /min Comments: Pattern: Regular Respiration Rate 16 /min Comments: Pattern: Unlabored BP Systolic 124 mm[Hg] Comments: Patient Position: Sitting; Cuff Location: Left Arm; Cuff Size: Standard BP Diastolic 88 mm[Hg] Comments: Patient Position: Sitting; Cuff Location: Left Arm; Cuff Size: Standard Weight 185 lb Height 68 in Body Mass Index Calculated 28.13 kg/m2 Body Surface Area Calculated 1.98 m2 Results Date Description Value Details 2-[id number]:30 Urinalysis, Office (62146) UA - LEUKOCYTE ESTERASE Negative (Normal) UA - NITRITE Negative (Normal) URINE UROBILINGN JUNE TIMED Normal mg/dL (Normal) UA - PROTEIN Negative mg/dL (Normal) UA - PH 6.0 (Normal) Comments: 6.5 UA - BLOOD Negative (Normal) UA - SPECIFIC GRAVITY 1.020 (Normal) UA - KETONES Negative mg/dL (Normal) UA - BILIRUBIN Negative (Normal) UA - GLUCOSE Trace (Normal) 8-Yoo-[id number]:24 Urinalysis, Office (49285) UA - LEUKOCYTE ESTERASE Negative (Normal) UA - NITRITE Negative (Normal) URINE UROBILINGN JUNE TIMED 2 mg/dL (Normal) UA - PROTEIN 30 mg/dL (Normal) UA - PH 6.0 (Normal) UA - BLOOD Negative (Normal) UA - SPECIFIC GRAVITY 1.030 (Abnormal) UA - KETONES Negative mg/dL (Normal) UA - BILIRUBIN Small (Normal) UA - GLUCOSE 500 (Abnormal) 13-Jvc-048162:26 Urinalysis, Office (99018) UA - LEUKOCYTE ESTERASE Negative (Normal) UA - NITRITE Negative (Normal) URINE UROBILINGN JUNE TIMED 2 mg/dL (Normal) UA - PROTEIN Negative mg/dL (Normal) UA - PH 6.0 (Normal) UA - BLOOD Negative (Normal) UA - SPECIFIC GRAVITY 1.020 (Normal) UA - KETONES Negative mg/dL (Normal) UA - BILIRUBIN Negative (Normal) UA - GLUCOSE 500 (Abnormal) 02-Nku-485410:53 Rapid Strep Test, Office (89924) Rapid Strep Test, Office Negative (Normal) 08-Xrk-354924:53 Rapid Flu (80872 x 2) Influenza A Ag negitive A and B (Normal) 75-Lil-175007:19 MONOSPOT TEST (91446) Comments: PATIENT NOT FASTINGPERFORMED BY: [employer] [id number] Information: [id number] [place] Qual W/Rflx Qn Negative (Normal) Comments: The sensitivity of [employer] antibody testing is 80-90%.Noah Burgos IgM testing offers higher sensitivity. 70-Msm-817085:58 Throat Culture (46997) Comments: PATIENT NOT FASTINGPERFORMED BY: [employer] [id number] [facility] [id number] Information: SRC:THRT [id number] Result 1 RRF (Normal) Comments: Routine respiratory esther Upper Respiratory Culture Final report (Normal) 01-Yye-246120:55 Rapid Strep Test, Office (70043) Rapid Strep Test, Office Negative (Normal) Plan of Care Name Dates Details Instructions Muscle spasm : Follow up if no improvement or if symptoms worsen Indication: Muscle spasm Nonsmoker : Eprescribed prescriptions (G8553) Indication: Nonsmoker Wart : Cryotherapy Indication: Wart Sore throat : *Antibiotic Usage Education - Male Indication: Sore throat Sore throat : Sore Throat *: acute pharyngitis Indication: Sore throat Planned Observations Blood Glucose , Office (73576)Indication: Diarrhea On: 14-Nvs-610132:29 Request Comments: 284 had novolog this am Planned Procedures PHYSICAL THERAPY (66345)By: Elliott On: 23-Jul-2018 Intent [facility] - Lumbar SpineBy: Elliott On: 23-Jul-2018 Intent [facility] IV Needle placement (55985)By: Sylwia On: 16-Jun-2015 Intent Gemma ROCA CNP, Mary E Comments: 22G insyte initiated on 1st attempt in L median antecube w/o difficulty, no s/s redness, swelling, infiltration, 1L N/S infusing on gravity pole at 78gtts/min, tolerated well- CTyler APPRAISER PERSONAL PROPERTY INFUSION, NORMAL SALINE SOLUTION , On: 16-Jun-2015 Intent 1000 CC (Special Coverage Comments: lot#[id number] exp- 09/02 Instructions Apply. See [facility]: 2049) (J7030)By: Gemma Dao CNP, CNP, Mary E IV Needle placement (53976)By: Sylwia On: 05-Jan-2015 Intent Gemma ROCA CNP, Mary E INFUSION, NORMAL SALINE SOLUTION , On: 05-Jan-2015 Intent 1000 CC (Special Coverage Comments: lot [id number] [id number] guageno redness or swelling noted Instructions Apply. See [facility]: 2049) (J7030)By: Gemma Dao CNP, CNP, Mary E Eprescribed prescriptions (G8553)By: On: 28-Nov-2012 Intent Julisa Brizuela LPN Planned Medications INFUSION, NORMAL SALINE SOLUTION , 1000 CC Ordered: 05-Jan-2015 Pending Gemma Dao CNP, CNP, Mary E INFUSION, NORMAL SALINE SOLUTION , 1000 CC Ordered: 16-Jun-2015 Pending Gemma Dao CNP, CNP, Mary E Instructions Name Dates Details Nonsmoker : How to access health information online Indication: Nonsmoker Nonsmoker : How to access health information online - Detail Indication: Nonsmoker Back pain : Patient Instructions Indication: Back pain Sore throat : Patient Instructions Indication: Sore throat Encounters Nurse Visit (Non-[place]) On: 02-Aug-2018 10:49 [facility] End: 02-Aug-2018 12:27 Office Visit On: 23-Jul-2018 10:09 Encounter Reason: Back Pain - Symptoms include back pain and spasm. Symptoms are located in the midline lower back. The patient describes the pain as burning and throbbing. Onset was 4 day(s) ago. Note for Back pain: S End: 23-Jul-2018 14:21 ymptoms have been off and on for the last 6 years or so-and recently got worse about 4 days ago with pain in the mid-lower back-no radiating pain, numbness or tingling-stops at the lower back. Has muscl e spasms on both sides of lower back. No loss of bladder or bowel function. [facility] and [facility] muscle relaxer-working, and tramadol injection. Taking Aleve for pain.Encounter Diagnosis: Back pain, BMI 30.0-30.9,adult, Nonsmoker, Muscle spasm [facility] Office Visit On: 16-Jun-2015 10:29 Encounter Reason: Diarrhea - Adult - The last clinic visit was day(s) ago. Symptoms include diarrhea, fecal urgency and abdominal cramps. The stools are described as loose and watery. Onset was sudden 7 hour(s) ago. Ther End: 16-Jun-2015 15:37 e is no known event that preceded symptom onset. The symptoms occur intermittently. The episodes occur 7 time(s) a day. This is described as moderate in severity and unchanged. Symptoms are not exacerba isabelle by eating, spicy foods, greasy foods, dairy products, stress or activity. Symptoms are not relieved by antidiarrheals, antiemetics, antispasmodics, stomach rest, high fiber diet or fluid intake. Ass ociated symptoms do not include irritability, lethargy, headache, weight loss, myalgias, rash, dry mouth, excessive thirst, sunken eyes, diminished tears or decreased urine output. The patient is not cu rrently being treated for this problem. By report there is good compliance with treatment. Pertinent medical history does not include food allergy, milk allergy, lactose intolerance, chronic constipatio n, inflammatory bowel disease, cystic fibrosis, celiac disease, irritable bowel syndrome, intussusception, Hirschsprung disease, necrotizing enterocolitis, failure to thrive, hyperthyroidism or impaired immunity. Risk factors include ill contact(s), but do not include day care attendance, recent travel or recent antibiotic use. Previous presentation included diarrhea and abdominal pain.Encounter Diagnosis: Diarrhea, Abdominal pain, Glucosuria [facility] Admission Note On: 07-Jan-2015 13:38 Encounter Diagnosis: Unspecified Diagnosis End: 07-Jan-2015 16:22 [facility] Office Visit On: 05-Jan-2015 10:52 Encounter Reason: Cold Symptoms - The last clinic visit was 1 day(s) ago. Symptoms include nasal congestion, scratchy throat, sore throat and headache, while symptoms do not include sneezing, runny nose, dry cough, produ End: 05-Jan-2015 14:02 ctive cough, facial pressure or facial pain. Onset was sudden. Onset followed exposure at home to someone with upper respiratory symptoms.Encounter Diagnosis: Body aches, Sore throat (462), Diarrhea, Diabetes, Type I, contolled (250.01), Dehydration [facility] Office Visit On: 12-Jul-2013 13:14 Encounter Diagnosis: Wart (078.10) End: 12-Jul-2013 14:18 [facility] Office Visit On: 28-Nov-2012 11:53 Encounter Reason: Sore Throat - Symptoms include sore throat, nasal congestion, postnasal drainage and chills, while symptoms do not include dysphagia or odynophagia. The symptoms are symmetrical. The pain radiates to th End: 28-Nov-2012 12:50 e right ear. Onset was 1 day(s) ago. The symptoms occur constantly. The patient describes this as worsening. Symptoms are exacerbated by swallowing liquids and swallowing solids. Associated symptoms inc lude headache, ear pain (R ear), cough and fatigue, while associated symptoms do not include nausea or vomiting. Current treatment includes decongestants.Encounter Diagnosis: Sore throat (462) [facility] Payers Adrianna ELLIS/Pantera Avila; nazia guarantor
--- OUTSIDE RECORDS SUMMARY | 2018-10-06 08:04 | XMS RPT_ITS ---
:1990 Author Organization [place] Support Name Relationship Address Phone ART CURTIS/TYRONE Unavailable [address] + [place] [address] LOYDA Unavailable [address] + [place] [address] ART, CURTIS/TYRONE Unavailable [address] + [place] [address] LOYDA Unavailable [address] + [place] [address] ART, CURTIS/TYRONE Unavailable [address] + [place] [address] LOYDA Unavailable [address] + [place] [address] ART, CURTIS/TYRONE Unavailable [address] + [place] [address] LOYDA Unavailable [address] + [place] [address] ART, CURTIS/TYRONE Unavailable [address] + [place] [address] LOYDA Unavailable [address] + [place] [address] ART, CURTIS/TYRONE Unavailable [address] + [place] [address] LOYDA Unavailable [address] + [place] [address] ART, CURTIS/TYRONE Unavailable [address] + [place] [address] LOYDA Unavailable [address] + [place] [address] ART, CURTIS/TYRONE Unavailable [address] + [place] [address] LOYDA Unavailable [address] + [place] [address] ART, CURTIS/TYRONE Unavailable [address] + [place] [address] LOYDA Unavailable [address] + [place] [address] Care Team Providers Name Role Phone Gemma Dao Attending Unavailable Ray DO, Debbie A Referring Unavailable Gemma Dao Consulting Unavailable Curt Yanez Attending Unavailable Primay Care Physicia, No Referring Unavailable Julisa Gallagher EFFICIENCY ENGINEER-C Attending Unavailable Julisa Gallagher NP-Jenifer Referring Unavailable Primay Care Physicia, No Primary Care Unavailable Julisa Gallagher NP-Jenifer Attending Unavailable Julisa Gallagher Referring Unavailable Primay Care Physicia, No Primary Care Unavailable Primay Care Physicia, No Primary Care Unavailable Morteza Barrett Attending Unavailable Danielle Segundo EFFICIENCY ENGINEER-C Attending Unavailable Primay Care Physicia, No Referring Unavailable Primay Care Physicia, No Primary Care Unavailable Danielle Segundo EFFICIENCY ENGINEER-C Attending Unavailable Danielle Segundo EFFICIENCY ENGINEER-C Referring Unavailable Primay Care Physicia, No Primary Care Unavailable Primay Care Physicia, No Primary Care Unavailable Mati Reyes Attending Unavailable Danielle Segundo NP-C Attending Unavailable Primay Care Physicia, No Referring Unavailable Danielle Segundo EFFICIENCY ENGINEER-C Attending Unavailable Danielle Segundo EFFICIENCY ENGINEER-C Referring Unavailable Primay Care Physicia, No Primary Care Unavailable PROBLEMS PROBLEMS DATE TYPE CONDITION / CODE ATTENDING STATUS SOURCE 07/23/2018 Unknown M54.9 - DorsalElliott pagan Kelly Active [place] unspecified / EFFICIENCY ENGINEER-C Community M54.9(ICD-10) Hospital Repository 07/21/2018 Unknown M54.5 - Low back Curt Yanez Active [place] pain / Community M54.5(ICD-10) Hospital Repository 06/14/2018 Unknown E10.9 - Type 1 Danielle Segundo Active [place] diabetes mellitus EFFICIENCY ENGINEER-C [facility] without Hospital complications / Repository E10.9(ICD-10) 2018 Unknown E10.65 - Type 1 Danielle Segundo Active [place] diabetes mellitus EFFICIENCY ENGINEER-C [facility] with hyperglycemia Hospital / E10.65(ICD-10) Repository PROCEDURES PROCEDURES No Procedure Records FoundRESULTS RESULTS EMERGENCY DEPARTMENT Observed: 08/02/2018 Status: F Source: [place] SUMMARY 4:04 PM [facility] REPOSITORY [facility] Medical Records Department [address] [place] [address] Emergency Department Summary 08/02/18 1235 MR#: [id number] Acct: [id number] Name: ELOISA CORDOVA Rep #: [id number] : 1990 28 From: Morteza Barrett MD PCP: Care Physician, No Primary Status: DEP ER - ER Visit Summary Date of Service: 08/02/18 Chief Complaint: Abdominal pain History of Present Illness: The patient is a 28 M prior appendectomy. States he had intermittent abdominal pain since Monday night. He thought it was associated with a gas-like smell at work. He said at home he nor his first 2 children are having any problems nor they have been sick. Said he had some nausea and some diarrhea. No dysuria. He is also had intermittent headaches. Not thunderclap it was not sudden onset. He has had no head trauma. He denies any fever or neck pain. Physical Examination: Well-appearing 28-year-old male. Vital signs. He is in no distress. HEENT exam pupils round react light. As mentioned intact. He has no signs of facial trauma or head trauma. Neck nontender. No meningismus. No lymphadenopathy. Lungs clear to auscultation bilaterally. Heart regular rate and rhythm no murmur. Abdomen soft and nontender. Normal bowel sounds no peritoneal signs. Extremities moves all 4. Neurovascularly intact. Back exam normal. Neurologically is awake alert motor or sensory deficits. Patient basically has an unremarkable exam. Test Results: None Emergency Department Course and Treatment: Patient's exam is unremarkable he does need a test done. Currently symptom-free. Treatment Plan: Zofran as needed for nausea. Disposition: Discharge Impression: Transient, intermittent abdominal pain uncertain etiology resolved This note was generated with canvs.co dictation software. It may contain incorrect words, spelling, and punctuation that were not noted in review of the chart prior to signing ED Disposition - Plan for ED Patient: Chief Complaint: Abd Pain Referrals: Care Physician,No Primary [Primary Care Provider] - What to do if you have Problems For any increased pain, shortness of breath, bleeding, nausea or vomiting, chest pain, or any unexpected problems, contact your Primary Care Provider. Call [facility] ([phone]) or report to the closest Emergency Room. Call 911 if necessary. 08/02/18 160 <Electronically signed by Morteza Barrett MD> Date Morteza Barrett MD Cosigner Signature (If Indicated): Date CC: No Primary Care Physician DISCHARGE INSTRUCTION Observed: 08/02/2018 Status: F Source: [place] 4:04 PM [facility] REPOSITORY [facility] Medical Records Department [address] [place] [address] Discharge Instruction 08/02/18 1237 MR#: [id number] Acct: [id number] Name: ELOISA CORDOVA Rep #: [id number] : 1990 28 From: Morteza Barrett MD PCP: Juan M Physician, No Primary Status: [facility] ER ED Disposition - Plan for ED Patient: Disposition: Home or Assisted Living Chief Complaint: Abd Pain Instructions: ED Abdominal Pain Unkn Cause Prescriptions: Ondansetron [Zofran Odt] 4 mg PO Q8H PRN PRN #7 tab PRN Reason: Nausea Referrals: Donte Beltran MD [STAFF PHYSICIAN] - As Needed Additional Instructions: Fluids and rest. Tylenol and Motrin as needed. Zofran as needed for nausea. What to do if you have Problems For any increased pain, shortness of breath, bleeding, nausea or vomiting, chest pain, or any unexpected problems, contact your Primary Care Provider. Call [facility] ([phone]) or report to the closest Emergency Room. Call 911 if necessary. 08/02/18 1604 <Electronically signed by Morteza Barrett MD> Date Morteza Barrett MD Cosigner Signature (If Indicated): Date CC: No Primary Care Physician L/S SPINE MIN 4 Observed: 07/23/2018 Status: F Source: [place] VIEWS 10:55 AM [facility] REPOSITORY [facility] Imaging Services [address] [place] [address] L/S Spine Min 4 Views MR#: [id number] Acct: [id number] Name: ELOISA CORDOVA Rep #: [id number] : 1990 M 28 From: Yue Watts MD PCP: Care Physician, No Primary Status: REG CLI Study: L/S Spine Min 4 Views Date of Exam: 07/23/18 Exam# [id number] Ordering Dr: Julisa Gallagher STUDY: X-RAY - LUMBAR SPINE REASON FOR EXAM: Male, 28 years old. Pain. TECHNIQUE: 5 view(s) of the lumbar spine were obtained. COMPARISON: None FINDINGS: Normal lumbar lordosis. There is no substantial scoliosis. There is a normal alignment of the vertebrae. Normal vertebral bodies and endplates. Normal disc space heights. The soft tissue structures are unremarkable. RAD/L/S Spine Min 4 Views IMPRESSION: Within normal limits x-ray examination of the lumbar spine. Electronically Signed: Yue Watts MD at 20:55 EST Tel , Service support , CC: MARY Gallagher; No Primary Care Physician Forest Aide: Signed URGENT CARE VISIT Observed: 07/21/2018 Status: F Source: [place] REPORT 10:51 AM [facility] REPOSITORY [facility] [address] [place] [address] [address] [place] [address] OFFICE VISIT Date of Service: 07/21/18 MR#: [id number] Acct: [id number] Name: ELOISA CORDOVA Rep #: [id number] : 1990 Provider: ALISSA Yanez Age/Sex: 28/M Location: [facility] Status: Signed Intake Vital Signs07/21/18 Body Mass Index (BMI) 26.8 07/21/18 Height 5 ft 11 in Intake Visit Reasons: BACK PAIN Chief Complaint: Back pain Riding Instructor Required: No Accompanied by: self Is patient in pain?: Yes Allergies No Known Allergies Allergy (Verified 07/21/18 10:10) Medications glucagon (human recombinant) 1 mg injection kit 1 mg IM ONCE #1 ea 02/07/18 [Rx Confirmed 07/21/18] Insulin Aspart [Novolog Flexpen] See Rx Instructions SUBCUT TIDCM 04/08/18 [History Confirmed 07/21/18] insulin glargine (U-100) 100 unit/mL (3 mL) subcutaneous pen 28 unit SC DAILY ml 06/14/18 [History Confirmed 07/21/18] cyclobenzaprine 10 mg tablet 10 mg PO TID PRN #30 tab 07/21/18 [Rx Confirmed 07/21/18] PFSH Medical History Anxiety (Acute) Back problem [...] month substance use type: does not use HPI HPI Chief Complaint: Back pain Details: ELOISA CORDOVA, is a 28 M who presents to the office today for low back pain that began on 07/20/2018. The patient states he was in his normal state of health, pain-free and his back suddenly began hurting. The pain is described as a spasm. He denies any radiating pain into the legs or buttock. The pain is primarily located near the spine and the paravertebral muscles on the right side. He tells me his thought his back was swollen last evening. He states he took 2 extra strength Tylenol and use a heating pad throughout the night but could not sleep well. He states he has had back pain in the past. He denies any injury to the back. He states he was not lifting or twisting that may have caused the pain. He denies any history of herniated disks or slipped disks. He is requesting a medical note for work tonight at [employer]. ROS Const Constitutional: No chills or fever(s) Eyes Eyes: No change in vision ENT ENT: No ear pain, sore throat, nasal congestion or nasal discharge Resp Respiratory: No cough, chest congestion, shortness of breath or wheezing Cardio Cardiology: No chest pain at rest or chest pain with exertion Gastro GI: No abdominal pain, diarrhea, vomiting or nausea/dyspepsia Genitourinary Male: No urinary frequency, urinary urgency or difficulty urinating Musc Musculoskeletal: Positive for back pain (Right lower back pain as described in the history of present illness); no abnormal walking Skin Skin: No rash or change in skin color Neuro Neurology: No confusion, abnormal walking or abnormal speech Psych Psychiatric: No confusion Aller/Imm Allergy/Immunologic: No wheezing Exam Musc Musculoskeletal: No joint tenderness, decreased ROM or spinal deformity Thoracic/Lumbar Spine: thoraco-lumbar ROM normal (Subjective pain with lateral bending to the right.), straight leg raise negative bilaterally, no thoracic spinal tenderness, no paraspinal tenderness Neuro General: deep tendon reflexes 2+ bilaterally (Patella and Achilles) Gait: normal gait Motor: strength 5/5 throughout, muscle tone normal throughout Sensory Exam: no sensory deficits noted Other: Negative straight leg raise bilateral lower extremities Office Meds ketorolac Performing Provider: ALISSA Carbone Administered by: Lissa De Jesus on 07/21/18 10:35 Dose Route Admin Location Lot Number Expiration Date NDC Car Sealer 60 mg IM Left Glute [id number] 12/16/19 27926-569-45 [place] Assessment AND Plan Problems 1. Acute right-sided low back pain without sciatica M54.5 Plan The patient received a Ketolorac injection of 60 mg. Patient tolerated the injection well and felt better. He was monitored for 15 minutes no adverse effects occurred. He was instructed to begin the cyclobenzaprine and begin ibuprofen or naproxen as needed. He was instructed on stretching exercises. If symptoms do not resolve he was encouraged to follow-up with his primary care physician. The patient was provided a note stating that he was [facility] today. Orders Orders: Medications New: Discontinued: ketorolac Discontinued Reason: Office Med60 mg (2 mL) IM ONCE 2 mL 0RF back pain M54.9 ication has been Documented as given Coding Level of Care Code Off vis,est,level 4 Diagnoses Acute right-sided low back pain without sciatica M54.5 Chronicity: acute Back pain laterality: right Sciatica presence: without sciatica 07/21/18 1051 <Electronically signed by Curt MAXWELL> Date Curt MAXWELL Cosigner Signature: Date (if applicable) CC: ENDOCRINOLOGY VISIT Observed: 06/17/2018 Status: F Source: [place] REPORT 4:47 PM [facility] REPOSITORY [facility] [address] [place] [address]. [address] [place] [address] OFFICE VISIT Date of Service: 06/14/18 MR#: [id number] Acct: [id number] Name: ELOISA CORDOVA Rep #: [id number] : 1990 Provider: Danielle Segundo NP Age/Sex: 28/M Location: [facility] Status: Signed HPI History of present illness [...] Position Sitting Intake Visit Reasons: Diabetes follow-up Riding Instructor Required: No Accompanied by: Self Allergies No [...] : low : 59 high : 350 PFSH Medical History Anxiety [...] Diabetes mellitus complication status: without complication 06/17/18 6716 <Electronically signed by Danielle HERNANDEZ> Date Danielle Greg Flowerer Signature: Date (if applicable) CC: HEMOGLOBIN A1C Collected: 06/14/2018 Status: F Source: [place] 5:07 PM [facility] REPOSITORY TYPE CODE TESTS RESULT OUT OF RANGE REFERENCE UNITS LAB L501.9985 4.2-6.3 % High HGB A1C 8.8 Performed By: #### L501.9985 #### [facility] [address] [place], [address] COMPREHENSIVE METABOLIC Collected: 06/14/2018 Status: F Source: [facility] 5:07 PM [facility] REPOSITORY TYPE CODE TESTS RESULT OUT OF [...] GAP 7 Performed By: #### L500.4050 #### [facility] [address] [place], [address] CREATININE, URINE Collected: 06/14/2018 Status: F Source: [place] (RANDOM) 5:07 PM [facility] REPOSITORY TYPE CODE TESTS RESULT OUT OF RANGE REFERENCE UNITS LAB L501.1200 NO RANGE EST. mg/dL Normal UR CREAT 67.20 Performed By: #### L501.1200, L502.0500 #### [facility] [address] [place], [address] MICROALBUMIN,RANDOM URINE Collected: Status: F Source: [place] 06/14/2018 5:07 PM [facility] REPOSITORY TYPE CODE TESTS RESULT OUT OF RANGE REFERENCE UNITS LAB L502.0500 NO RANGE EST. mg/L Normal 5.4 MICROALBUMIN ,UR Performed By: #### L501.1200, L502.0500 #### [facility] [address] [place], [address] 12 LEAD ELECTROCARDIOGRAM Observed: 04/11/2018 Status: F Source: [place] 9:02 AM [facility] REPOSITORY [facility] Cardiovascular Services [address] [place] [address] 12 Lead EKG 04/08/182021 MR#: [id number] Acct: [id number] Name: ELOISA CORDOVA Rep #: [id number] : 1990 28 From: Markos Olsen MD [...] ECG Confirmed by MARKOS OLSEN MD ([id number]), development editor YESSENIA CURTIS ([id number]) on 04/11/2018 9:02:38 AM Referred By: MARLENE Confirmed By:MARKOS OLSEN MD 04/11/18901 Date Markos Olsen MD CC: No Primary Care Physician; Mati Reyes MD Signed EMERGENCY DEPARTMENT Observed: 04/08/2018 Status: F Source: [place] SUMMARY 9:22 PM [facility] REPOSITORY [facility] Medical Records Department [address] [place] [address] Emergency Department Summary 04/08/182119 MR#: [id number] Acct: [id number] Name: ELOISA CORDOVA Rep #: [id number] : 1990 28 From: Mati Reyes MD PCP: Care Physician, [...] Chest pain This note was generated with canvs.co dictation software. It may contain incorrect words, [...] your Primary Care Provider. Call [facility] ([phone]) or report to the closest Emergency Room. Call 911 if necessary. 04/08/182121 <Electronically signed by Mati Reyes MD> Date Mati Reyes MD Cosigner Signature (If Indicated): Date CC: No Primary Care Physician DISCHARGE INSTRUCTION Observed: 04/08/2018 Status: F Source: [place] 9:22 PM [facility] REPOSITORY [facility] Medical Records Department [address] [place] [address] Discharge Instruction 04/08/182121 MR#: [id number] Acct: [id number] Name: ELOISA CORDOVA Rep #: [id number] : 1990 28 From: Mati Reyes MD [...] your Primary Care Provider. Call [facility] ([phone]) or report to the closest Emergency Room. Call 911 if necessary. 04/08/182121 <Electronically signed by Mati Reyes MD> Date Mati Reyes MD Cosigner Signature (If Indicated): Date CC: No Primary Care Physician CHEST 1 VIEW Observed: 04/08/2018 Status: F Source: [place] (PORTABLE) 8:30 PM [facility] REPOSITORY [facility] Imaging Services [address] [place] [address] Chest 1 View (Portable) MR#: [id number] Acct: [id number] Name: ELOISA CORDOVA Rep #: [id number] : 1990 M 28 From: Aki Smith MD PCP: Juan M Physician, No Primary Status: PRE ER Study: Chest 1 View (Portable) Date of Exam: 04/08/18 Exam# [id number] Ordering Dr: Malick, Ed P. STUDY: X-RAY CHEST REASON FOR [...] No Primary Care Physician; ED PHYSICIAN PROVIDER Forest Aide: Signed CBC W/DIFF, AUTOMATED Collected: 04/08/2018 Status: F Source: [place] 8:25 PM [facility] REPOSITORY TYPE CODE TESTS RESULT OUT OF [...] Performed By: #### L100.0100, L500.2500, L501.4010 #### [facility] [address] [place], [place], [address] BASIC METABOLIC Collected: 04/08/2018 Status: F Source: [place] PROFILE (BMP) 8:25 PM [facility] REPOSITORY TYPE CODE TESTS RESULT OUT OF [...] Performed By: #### L100.0100, L500.2500, L501.4010 #### [facility] [address] [place], [place], [address] TROPONIN-I Collected: 04/08/2018 Status: F Source: [place] 8:25 PM [facility] REPOSITORY TYPE CODE TESTS RESULT OUT OF RANGE REFERENCE UNITS LAB L501.4010 <0.045 ng/mL Normal < 0.015 TROPONIN-I Result Comment: TROPONIN-I EXPECTED VALUES <0.045 Negative 0.045 - 0.590 Consistent with Cardiac Damage > OR = 0.600 Critical Value Not every elevated troponin is indicative of MS. These values should be used with clinical judgement in examining the patient's clinical picture for diagnosis. To establish a diagnosis of MS versus myocardial injury, there must be a demonstrated rise and/or fall in the troponin values, in addition to ischemic symptoms, EKG changes, new regional wall motion abnormality, and/or angiographical evidence. PLEASE NOTE: REFERENCE RANGES EDITED 17 Performed By: #### L100.0100, L500.2500, L501.4010 #### [facility] [address] [place], [place], [address] ENDOCRINOLOGY VISIT Observed: 02/24/2018 Status: F Source: [place] REPORT 10:26 AM [facility] REPOSITORY [facility] [address] [place] [address] OFFICE VISIT Date of Service: 02/07/18 MR#: [id number] Acct: [id number] Name: ELOISA CORDOVA Rep #: [id number] : 1990 Provider: Danielle Segundo NP Age/Sex: 28/M Location: [facility] Status: Signed HPI History of present illness Gayle Cordova is a 28 year old male who presents for follow up of diabetes type 1. Diagnosed in 2002. Seen last 03/2017. Continues on basaglar 26 units daily and meal efeckdf12 units per meal. Sliding scale as needed. [...] Position Sitting Intake Visit Reasons: 6 M Riding Instructor Required: No Accompanied by: Self Is patient [...] Orders: Medications New: Discontinued: insulin glargine (U-100) (Basaglar QgayQb04 units (0.26 mL) Sub-Q QHS E10.9 Omayra Cheryl huang U-100 Insulin) inject 26 units daily Discontinued [...] Status: F Source: [place] 2:47 PM [facility] REPOSITORY TYPE CODE TESTS RESULT OUT OF [...] 6 Performed By: #### L500.4050, L500.4100 #### [facility] [address] [place], [place], [address] LIPID PROFILE Collected: 2018 Status: F Source: [place] 2:47 PM [facility] REPOSITORY TYPE CODE TESTS RESULT OUT OF [...] 11 Performed By: #### L500.4050, L500.4100 #### [facility] [address] [place], [place], [address] MICROALB:CREAT Collected: 2018 Status: F Source: [place] RATIO,RANDOM UR 2:47 PM [facility] REPOSITORY TYPE CODE TESTS RESULT OUT OF RANGE REFERENCE UNITS LAB L501.1200 NO RANGE EST. mg/dL Normal UR CREAT 181.00 LAB L502.0500 NO RANGE EST. mg/L Normal 18.7 MICROALBUMIN ,UR LAB L502.0600 <30 mg/g CRE mg/g CRE Normal 10.3 MALB:CREAT Performed By: #### L502.0250, L501.9985 #### [facility] [address] [facility] [place], [place], [address] HEMOGLOBIN A1C Collected: 2018 Status: F Source: [place] 2:47 PM [facility] REPOSITORY TYPE CODE TESTS RESULT OUT OF RANGE REFERENCE UNITS LAB L501.9985 4.2-6.3 % High HGB A1C 9.3 Performed By: #### L502.0250, L501.9985 #### [facility] [address] [place], [address] ALLERGIES ALLERGIES DATE TYPE / CODE NAME / CODE REACTION SEVERITY SOURCE 08/02/2018 Drug No Known Unknown [facility] Allergy/4160 Allergies/F00 Hospital 39275(SNOMED 5391272(RXNOR Repository CT) M) ENCOUNTERS ENCOUNTERS ADMIT/DISCHARGE ACCOUNT ADMITTING ENCOUNTER LOCATION SOURCE NUMBER CLASS 08/02/2018/ [id number] Emergency [place] 9 3 [facility] ing:ED Repository 08/01/2018 [id number] Ambulatory [place] 8 [facility] ing:PT Repository 07/23/2018 17978 Ambulatory Building:[facility] Practices Repository 07/23/2018 [id number] Ambulatory [place] 4 [facility] ing:MTRAD Repository 07/21/2018/ [id number] Ambulatory BMSBuilding:B [place] 9 1 [facility] Repository 06/14/2018 [id number] Ambulatory [place] 6 [facility] ing:LAB Repository 06/14/2018/ [id number] Ambulatory BMSBuilding:B [place] 8 5 [facility] Repository 04/08/2018/ [id number] Emergency [place] 8 3 [facility] ing:ED Repository 2018 [id number] Ambulatory [place] 9 [facility] ing:LAB Repository 02/07/2018/ [id number] Ambulatory BMSBuilding:B [place] 8 7 [facility] Repository PAYERS PAYERS ENCOUNTER GUARANTOR PAYER SUBSCRIBER SOURCE 08/02/2018 ELOISA CROWDEROB: [place] [id number] [id number] Number[facility] [place], [place] [id number] Repository [address]Kml: [phone] leo Date:0476-04-83RL [phone] (HP) [address] [place] [address]SG: 08/02/2018 Secondary NOT GIVENUNK [place] Insurance:SELF PAY [facility] Number: Effective Repository Date:2018-08-02 08/01/2018 ELOISA Beckwith Primary ELOISA Beckwith DAILDOB: [place] [id number] Insurance:ANTHEMPolic [id number] [facility] y Number: [place], [place] [id number] Repository [address]Tqn: [phone] leo Date:[id number] [phone] () [id number] [place] [address]JO: 08/01/2018 Secondary NOT GIVENUNK [place] Insurance:SELF PAY [facility] Number: Effective Repository Date:2018-07-23 07/23/2018 Eloisa Beckwith Primary Eloisa Beckwith DailDOB: [place]IP Practices DailDOB: Insurance:Golinda [id number] Repository BC/BSPolicy Number: [facility] [id number] [facility] [address]Qwm: (002) [place] [address]Vho: Date:3550-69-96Mcls [phone] () Name:[facility] Sarah ()Tel: [phone], [place] [phone] () [phone]: 07/23/2018 Secondary Curtis DailDOB: [place] Practices Insurance:Golinda [id number] Repository /BSPolicy Number: [place] [id number] Lane[place], [place] Date: [address]Moj: [phone]) [id number] [phone] () Name:[address], [place] [id number]: 07/23/2018 ELOISA Beckwith Primary ELOISA Beckwith DAILDOB: [place] [id number] Insurance:ANTHEMPolic [id number] Community [place] y Number: [place], [place] [id number] Repository [address]Gyt: (330) leo Date:4431-70-18EX [phone] () [address], [place] [address]XV: 07/23/2018 Secondary NOT GIVENUNK [place] Insurance:SELF PAY Community [facility] Number: Effective Repository Date:2018-07-23 07/21/2018 ELOISA Beckwith Primary ELOISA Beckwith DAILDOB: [place] [id number] Insurance:ANTHEMPolic [id number] Community [place] y Number: [place] [id number] Repository 175[address]Njt: (330) leo Date:6312-13-18VM [phone] () [address], [place] [address]RL: 07/21/2018 Secondary NOT GIVENUNK [place] Insurance:SELF PAY Community [facility] Number: Effective Repository Date:2018-07-21 06/14/2018 ELOISA Beckwith Primary ELOISA Beckwith DAILDOB: [place] [id number] Insurance:ANTHEMPolic [id number] Community [place] y Number: [place], [place] [id number] Repository [address]Kbp: (330) leo Date:0322-48-52EQ [phone] () [address], [place] [address]AG: 06/14/2018 Secondary NOT GIVENUNK [place] Insurance:SELF PAY Community [facility] Number: Effective Repository Date:2018-06-14 06/14/2018 ELOISA Beckwith Primary ELOISA Beckwith DAILDOB: [place] [id number] Insurance:ANTHEMPolic [id number] Community [place] y Number: [place] [id number] Repository [address]Hvm: (330) leo Date:2983-45-57KO [phone] () [address], [place] [address]XK: 06/14/2018 Secondary NOT GIVENUNK [place] Insurance:SELF PAY Community [facility] Number: Effective Repository Date:2018-06-14 04/08/2018 ELOISA Beckwith Primary ELOISA CARDENASLDOB: [place] [id number] Insurance:ANTHEMPolic [id number] Community [place] y Number: [place] [id number] Repository [address]Oxe: 330 leo Date:5287-86-67JA [phone] () [address], [place] [address]QD: 04/08/2018 Secondary NOT GIVENUNK [place] Insurance:SELF PAY Community [facility] Number: Effective Repository Date:2018-04-08 2018 ELOISA CARDENASL1520 Primary ELOISA CARDENASLDOB: [place] Insurance:ANTHEMPolic [id number] y Number: [facility] [address]Gjm: [id number] Repository leo Date:6912-35-67VM () [address], [place] [address]HM: 2018 Secondary NOT GIVENUNK [place] Insurance:SELF PAY Community [facility] Number: Effective Repository Date:2018 2018 ELOISA CARDENASL1520 Primary ELOISA CROWDEROB: [place] Insurance:ANTHEMPolic [id number] Number: [facility] [address]Eak: [id number] Repository leo Date:1946-29-07IO () [address], [place] [address]OL: 2018 Secondary NOT GIVENUNK [place] Insurance:SELF PAY [facility] Number: Effective Repository Date:2018
--- OUTSIDE RECORDS SUMMARY | 2018-10-06 08:04 | XMS RPT_ITS | Continuity of Care Document ---
:1990 Author Organization [facility] Address [facility] [address] [place] [address] Phone Care Team Providers Name Role Phone Gemma Dao CNP Unavailable Ray LINDERDebbie Unavailable Thomas Galvan Unavailable Unavailable Julisa Gallagher Unavailable Unavailable Problems Name Dates Details Abdominal [...] smoker Vital Signs Date Test Result Details 1-Aii-237390:10 Temperature 97.1 f Comments: Method: Temporal Pulse [...] kg/m2 Body Surface Area Calculated 2.04 m2 4-Mqw-506964:33 Temperature 97.6 f Pulse 75 /min Comments: [...] 1.98 m2 Results Date Description Value Details 6-Znj-740181:30 Urinalysis, Office (11152) UA - LEUKOCYTE ESTERASE Negative (Normal) UA - NITRITE Negative (Normal) URINE UROBILINGN JUNE TIMED Normal mg/dL (Normal) UA - PROTEIN Negative mg/dL (Normal) UA - PH 6.0 (Normal) Comments: 6.5 UA - BLOOD Negative (Normal) UA - SPECIFIC GRAVITY 1.020 (Normal) UA - KETONES Negative mg/dL (Normal) UA - BILIRUBIN Negative (Normal) UA - GLUCOSE Trace (Normal) 6-Boa-286118:24 Urinalysis, Office (05173) UA - LEUKOCYTE ESTERASE Negative (Normal) UA - NITRITE Negative (Normal) URINE UROBILINGN JUNE TIMED 2 mg/dL (Normal) UA - PROTEIN 30 mg/dL (Normal) UA - PH 6.0 (Normal) UA - BLOOD Negative (Normal) UA - SPECIFIC GRAVITY 1.030 (Abnormal) UA - KETONES Negative mg/dL (Normal) UA - BILIRUBIN Small (Normal) UA - GLUCOSE 500 (Abnormal) 24-Kct-175759:26 Urinalysis, Office (58884) UA - LEUKOCYTE ESTERASE Negative (Normal) UA - NITRITE Negative (Normal) URINE UROBILINGN JUNE TIMED 2 mg/dL (Normal) UA - PROTEIN Negative mg/dL (Normal) UA - PH 6.0 (Normal) UA - BLOOD Negative (Normal) UA - SPECIFIC GRAVITY 1.020 (Normal) UA - KETONES Negative mg/dL (Normal) UA - BILIRUBIN Negative (Normal) UA - GLUCOSE 500 (Abnormal) 70-Rnx-875423:53 Rapid Strep Test, Office (40637) Rapid Strep Test, Office Negative (Normal) 48-Ngn-887189:53 Rapid Flu (28802 x 2) Influenza A Ag negitive A and B (Normal) 36-Sup-095833:19 MONOSPOT TEST (70005) Comments: PATIENT NOT FASTINGPERFORMED BY: [facility]6[address] [facility] [id number] Information: [id number] [place] Qual W/Rflx Qn Negative (Normal) Comments: The sensitivity of Heterophile antibody testing is 80-90%.Noah Burgos IgM testing offers higher sensitivity. 31-Gsy-883989:58 Throat Culture (61696) Comments: PATIENT NOT FASTINGPERFORMED BY: [facility] HospitalSfv[facility]24[facility] [id number] Information: SRC:THRT [id number] Result 1 RRF (Normal) Comments: Routine respiratory esther Upper Respiratory Culture Final report (Normal) 74-Hbt-305803:55 Rapid Strep Test, Office (45410) Rapid Strep Test, Office Negative (Normal) Plan [...] throat Planned Observations Blood Glucose , Office (69930)Indication: Diarrhea On: 55-Gan-465812:29 Request Comments: 284 had novolog this am Planned Procedures PHYSICAL THERAPY (43139)By: Elliott On: 23-Jul-2018 Intent Julisa Radiology - Lumbar SpineBy: Elliott On: 23-Jul-2018 Intent Julisa IV Needle placement (79749)By: Sylwia On: 16-Jun-2015 Intent Gemma ROCA CNP, Mary E Comments: 22G insyte initiated on 1st attempt in L median antecube w/o difficulty, no s/s redness, swelling, infiltration, 1L N/S infusing on gravity pole at 78gtts/min, tolerated well- CTyler GEOTHERMAL OPERATIONS ENGINEER INFUSION, NORMAL SALINE SOLUTION , On: 16-Jun-2015 Intent 1000 CC (Special Coverage Comments: lot#[id number] exp- 09/02 Instructions Apply. See [facility]: 9) (J7030)By: Gemma Dao CNP, CNP, Mary E IV Needle placement (74135)By: Sylwia On: 05-Jan-2015 Intent Gemma ROCA CNP, Mary E INFUSION, NORMAL SALINE SOLUTION , On: 05-Jan-2015 Intent 1000 CC (Special Coverage Comments: lot [id number] ccleft [id number] guageno redness or swelling noted Instructions Apply. See [facility]: 2049) (J7030)By: Gemma Dao CNP, [...] : Patient Instructions Indication: Sore throat Encounters Office Visit On: 23-Jul-2018 10:09 Encounter Reason: [...] (462) [facility] Payers Adrianna ELLIS/Pantera mandujano guarantor
== END 2018-08-01 19:00 | disposition home or self-care (01) ==
LOC: PT 12:00
PROVIDERS: Referring Provider Nurse Practitioner Gerontology; Visit Provider Nurse Practitioner Gerontology
DX: M54.9 Dorsalgia, unspecified (principal); M62.838 Other muscle spasm

== ENCOUNTER 2018-08-02 11:59 | Emergency (ER) | payer BC, SELFPAY ==
[2018-07-21 10:11] VITALS: BMI 26.8
[2018-08-02 12:00] VITALS: BP 130/91; PULSE 76; RESP 16; TEMP 37; O2SAT 99; BMI 26.4
--- NOTE | 2018-08-02 12:37 | ED.DEP ---
ED Disposition - Plan for ED Patient: Disposition: Home or Assisted Living Chief Complaint: Abd Pain Instructions: ED Abdominal Pain Unkn Cause Prescriptions: Ondansetron [Zofran Odt] 4 mg PO Q8H PRN PRN #7 tab PRN Reason: Nausea Referrals: Donte Beltran MD [STAFF PHYSICIAN] - As Needed Additional Instructions: Fluids and rest. Tylenol and Motrin as needed. Zofran as needed for nausea.
--- NOTE | 2018-08-02 12:38 | ED.DCSUM_ITS ---
- ER Visit Summary Date of Service: 08/02/18 Chief Complaint: Abdominal pain History of Present Illness: The patient is a 28 M prior appendectomy. States he had intermittent abdominal pain since Monday night. He thought it was associated with a gas-like smell at work. He said at home he nor his first 2 children are having any problems nor they have been sick. Said he had some nausea and some diarrhea. No dysuria. He is also had intermittent headaches. Not thunderclap it was not sudden onset. He has had no head trauma. He denies any fever or neck pain. Physical Examination: Well-appearing 28-year-old male. Vital signs. He is in no distress. HEENT exam pupils round react light. As mentioned intact. He has no signs of facial trauma or head trauma. Neck nontender. No meningismus. No lymphadenopathy. Lungs clear to auscultation bilaterally. Heart regular rate and rhythm no murmur. Abdomen soft and nontender. Normal bowel sounds no peritoneal signs. Extremities moves all 4. Neurovascularly intact. Back exam normal. Neurologically is awake alert motor or sensory deficits. Patient basically has an unremarkable exam. Test Results: None Emergency Department Course and Treatment: Patient's exam is unremarkable he does need a test done. Currently symptom-free. Treatment Plan: Zofran as needed for nausea. Disposition: Discharge Impression: Transient, intermittent abdominal pain uncertain etiology resolved This note was generated with [employer] dictation software. It may contain incorrect words, spelling, and punctuation that were not noted in review of the chart prior to signing ED Disposition - Plan for ED Patient: Chief Complaint: Abd Pain Referrals: Care Physician,No Primary [Primary Care Provider] -
--- OUTSIDE RECORDS SUMMARY | 2018-10-07 05:21 | XMS RPT_ITS ---
:1990 Author Organization [place] Support Name Relationship Address Phone ART CURTIS/TYRONE Unavailable [address] + [place] [address] LOYDA Unavailable [address] + [place] [address] ART, CURTIS/TYRONE Unavailable [address] + [place] [address] LOYDA Unavailable [address] + [place] [address] ART, CUTRIS/TYRONE Unavailable [address] + [place] [address] LOYDA Unavailable [address] + [place] [address] ART, CURTIS/TYRONE Unavailable [address] + [place] [address] LOYDA Unavailable [address] + [place] [address] ART, CURTIS/TYRONE Unavailable [address] + [place] [address] LOYDA Unavailable [address] + [place] [address] ART, CURTIS/TYRONE Unavailable [address] + [place] [address] LOYDA Unavailable [address] + [place] [address] ART, CURTIS/TYRONE Unavailable [address] + [place] [address] LOYDA Unavailable [address] + [place] [address] ART, CURTIS/TYRONE Unavailable [address] + [place] [address] LOYDA Unavailable [address] + [place] [address] ART, CURTIS/TYRONE Unavailable [address] + [place] [address] LOYDA Unavailable [address] + [place] [address] Care Team Providers Name Role Phone Gemma Dao Attending Unavailable Fast DO, Debbie A Referring Unavailable Gemma Dao Consulting Unavailable Curt Yanez Attending Unavailable Primay Care Physicia, No Referring Unavailable Julisa Gallagher FINISHING OPERATOR-C Attending Unavailable Julisa Gallagher NP-Jenifer Referring Unavailable Primay Care Physicia, No Primary Care Unavailable Danielle Segundo NP-C Attending Unavailable Primay Care Physicia, No Referring Unavailable Primay Care Physicia, No Primary Care Unavailable Danielle Segundo FINISHING OPERATOR-C Attending Unavailable Danielle Segundo FINISHING OPERATOR-C Referring Unavailable Primay Care Physicia, No Primary Care Unavailable Julisa Gallagher NP-Jenifer Attending Unavailable Julisa Gallagher Referring Unavailable Primay Care Physicia, No Primary Care Unavailable Primay Care Physicia, No Primary Care Unavailable Morteza Barrett Attending Unavailable Primay Care Physicia, No Primary Care Unavailable Mati Reyes Attending Unavailable Danielle Segundo NP-C Attending Unavailable Primay Care Physicia, No Referring Unavailable Danielle Segundo FINISHING OPERATOR-C Attending Unavailable Danielle Segundo FINISHING OPERATOR-C Referring Unavailable Primay Care Physicia, No Primary Care Unavailable PROBLEMS PROBLEMS DATE TYPE CONDITION / CODE ATTENDING STATUS SOURCE 07/23/2018 Unknown M54.9 - DorsalElliott pagan Kelly Active [place] unspecified / FINISHING OPERATOR-C Community M54.9(ICD-10) Hospital Repository 07/21/2018 Unknown M54.5 - Low back Curt Yanez Active [place] pain / Community M54.5(ICD-10) Hospital Repository 06/14/2018 Unknown E10.9 - Type 1 Danielle Segundo Active [place] diabetes mellitus FINISHING OPERATOR-C Community without Hospital complications / Repository E10.9(ICD-10) 2018 Unknown E10.65 - Type 1 Danielle Segundo Active [place] diabetes mellitus FINISHING OPERATOR-C [facility] with hyperglycemia Hospital / E10.65(ICD-10) Repository PROCEDURES PROCEDURES No Procedure Records FoundRESULTS RESULTS EMERGENCY DEPARTMENT Observed: 08/02/2018 Status: F Source: [place] SUMMARY 4:04 PM [facility] Medical Records Department [address] [place] [address] Emergency Department Summary 08/02/18 1235 MR#: [id number] Acct: [id number] Name: ELOISA CORDOVA Rep #: [id number] : 1990 28 From: Morteza Barrett MD [...] etiology resolved This note was generated with The New Hive dictation software. It may contain incorrect words, [...] your Primary Care Provider. Call [facility] ([phone]) or report to the closest Emergency Room. Call 911 if necessary. 08/02/18 160 <Electronically signed by Morteza Barrett MD> Date Morteza Barrett MD Cosigner Signature (If Indicated): Date CC: No Primary Care Physician DISCHARGE INSTRUCTION Observed: 08/02/2018 Status: F Source: [place] 4:04 PM [facility] Medical Records Department [address] [place] [address] Discharge Instruction 08/02/18 1237 MR#: [id number] Acct: [id number] Name: ELOISA CORDOVA Rep #: [id number] : 1990 28 From: Morteza Barrett MD PCP: Juan M Physician, No Primary Status: [facility] ER ED Disposition - Plan for ED [...] your Primary Care Provider. Call [facility] ([phone]) or report to the closest Emergency Room. Call 911 if necessary. 08/02/18 1604 <Electronically signed by Morteza Barrett MD> Date Morteza Barrett MD Cosigner Signature (If Indicated): Date CC: No Primary Care Physician L/S SPINE MIN 4 Observed: 07/23/2018 Status: F Source: [place] VIEWS 10:55 AM [facility] Imaging Services [address] [place] [address] L/S Spine Min 4 Views MR#: [id number] Acct: [id number] Name: ELOISA CORDOVA Rep #: [id number] : 1990 M 28 From: Yue Watts MD PCP: Care Physician, No Primary Status: REG CLI Study: L/S Spine Min 4 Views Date of Exam: 07/23/18 Exam# [id number] Ordering Dr: Julisa Gallagher STUDY: X-RAY - [...] CC: MARY Gallagher; No Primary Care Physician Cougar Hunter: Signed URGENT CARE VISIT Observed: 07/21/2018 Status: F Source: [place] REPORT 10:51 AM [facility] [address] [place] [address] [address] [place] [address] OFFICE VISIT Date of Service: 07/21/18 MR#: [id number] Acct: [id number] Name: ELOISA CORDOVA Rep #: [id number] : 1990 Provider: ALISSA Yanez Age/Sex: 28/M Location: [facility] Status: Signed Intake Vital Signs07/21/18 Body Mass Index (BMI) 26.8 07/21/18 Height 5 ft 11 in Intake Visit Reasons: BACK PAIN Chief Complaint: Back pain Graphics Coordinator Required: No Accompanied by: self Is patient [...] a medical note for work tonight at [employer]. ROS Const Constitutional: No chills or fever(s) [...] Admin Location Lot Number Expiration Date NDC Fur Pointer 60 mg IM Left Glute [id number] 12/16/19 16218-298-15 FRESENIUS Assessment AND Plan Problems 1. Acute [...] ENDOCRINOLOGY VISIT Observed: 06/17/2018 Status: F Source: [place] REPORT 4:47 PM [facility] [address] [place] [address]. [address] [place] [address] OFFICE VISIT Date of Service: 06/14/18 MR#: [id number] Acct: [id number] Name: ELOISA CORDOVA Rep #: [id number] : 1990 Provider: Danielle Segundo NP Age/Sex: 28/M Location: [facility] Status: Signed HPI History of present illness [...] Position Sitting Intake Visit Reasons: Diabetes follow-up Graphics Coordinator Required: No Accompanied by: Self Allergies No [...] Diabetes mellitus complication status: without complication 06/17/18 9082 <Electronically signed by Danielle HERNANDEZ> Date Danielle Greg Flowerer Signature: Date (if applicable) CC: HEMOGLOBIN A1C Collected: 06/14/2018 Status: F Source: [place] 5:07 PM [facility] TYPE CODE TESTS RESULT OUT OF RANGE REFERENCE UNITS LAB L501.9985 4.2-6.3 % High HGB A1C 8.8 Performed By: #### L501.9985 #### [facility] [address] [place], [address] COMPREHENSIVE METABOLIC Collected: 06/14/2018 Status: F Source: [facility] 5:07 PM [facility] TYPE CODE TESTS RESULT OUT OF [...] GAP 7 Performed By: #### L500.4050 #### [facility] [address] [place], [address] CREATININE, URINE Collected: 06/14/2018 Status: F Source: [place] (RANDOM) 5:07 PM [facility] TYPE CODE TESTS RESULT OUT OF RANGE REFERENCE UNITS LAB L501.1200 NO RANGE EST. mg/dL Normal UR CREAT 67.20 Performed By: #### L501.1200, L502.0500 #### [facility] [address] [place], [address] MICROALBUMIN,RANDOM URINE Collected: Status: F Source: [place] 06/14/2018 5:07 PM [facility] TYPE CODE TESTS RESULT OUT OF RANGE REFERENCE UNITS LAB L502.0500 NO RANGE EST. mg/L Normal 5.4 MICROALBUMIN ,UR Performed By: #### L501.1200, L502.0500 #### [facility] [address] [place], [address] 12 LEAD ELECTROCARDIOGRAM Observed: 04/11/2018 Status: F Source: [place] 9:02 AM [facility] Cardiovascular Services [address] [place] [address] 12 Lead EKG 04/08/182021 MR#: [id number] Acct: [id number] Name: ELOISA CORDOVA Rep #: [id number] : 1990 28 From: Markos Olsen MD [...] ECG Confirmed by MARKOS OLSEN MD ([id number]), photograph editor YESSENIA CURTIS ([id number]) on 04/11/2018 9:02:38 AM Referred By: MARLENE Confirmed By:MARKOS OLSEN MD 04/11/18901 Date Markos Olsen MD CC: No Primary Care Physician; Mati Reyes MD Signed EMERGENCY DEPARTMENT Observed: 04/08/2018 Status: F Source: [place] SUMMARY 9:22 PM [facility] Medical Records Department [address] [place] [address] Emergency Department Summary 04/08/182119 MR#: [id number] Acct: [id number] Name: ELOISA CORDOVA Rep #: [id number] : 1990 28 From: Mati Reyes MD [...] Chest pain This note was generated with The New Hive dictation software. It may contain incorrect words, [...] your Primary Care Provider. Call [facility] ([phone]) or report to the closest Emergency Room. Call 911 if necessary. 04/08/182121 <Electronically signed by Mati Reyes MD> Date Mati Reyes MD Cosigner Signature (If Indicated): Date CC: No Primary Care Physician DISCHARGE INSTRUCTION Observed: 04/08/2018 Status: F Source: [place] 9:22 PM [facility] Medical Records Department [address] [place] [address] Discharge Instruction 04/08/182121 MR#: [id number] Acct: [id number] Name: ELOISA CORDOVA Rep #: [id number] : 1990 28 From: Mati Reyes MD [...] your Primary Care Provider. Call [facility] ([phone]) or report to the closest Emergency Room. Call 911 if necessary. 04/08/182121 <Electronically signed by Mati Reyes MD> Date Mati Reyes MD Cosigner Signature (If Indicated): Date CC: No Primary Care Physician CHEST 1 VIEW Observed: 04/08/2018 Status: F Source: [place] (PORTABLE) 8:30 PM [facility] Imaging Services [address] [place] [address] Chest 1 View (Portable) MR#: [id number] Acct: [id number] Name: ELOISA CORDOVA Rep #: [id number] : 1990 M 28 From: Aki Smith MD PCP: Juan M Physician, No Primary Status: PRE ER Study: Chest 1 View (Portable) Date of Exam: 04/08/18 Exam# [id number] Ordering Dr: Malick, Ed P. STUDY: X-RAY [...] IMPRESSION: No acute thoracic pathology. Electronically Signed: kAi Smith, at 20:51 EDT Tel , Service support , CC: No Primary Care Physician; ED PHYSICIAN PROVIDER Cougar Hunter: Signed CBC W/DIFF, AUTOMATED Collected: 04/08/2018 Status: F Source: [place] 8:25 PM [facility] TYPE CODE TESTS RESULT OUT OF [...] Performed By: #### L100.0100, L500.2500, L501.4010 #### [facility] [address] [place], [place], [address] BASIC METABOLIC Collected: 04/08/2018 Status: F Source: [place] PROFILE (BMP) 8:25 PM [facility] TYPE CODE TESTS RESULT OUT OF [...] Performed By: #### L100.0100, L500.2500, L501.4010 #### [facility] [address] [place], [place], [address] TROPONIN-I Collected: 04/08/2018 Status: F Source: [place] 8:25 PM [facility] TYPE CODE TESTS RESULT OUT OF RANGE REFERENCE UNITS LAB L501.4010 <0.045 ng/mL Normal < 0.015 TROPONIN-I Result Comment: TROPONIN-I EXPECTED VALUES <0.045 Negative 0.045 - 0.590 Consistent with Cardiac Damage > OR = 0.600 Critical Value Not every elevated troponin is indicative of WI. These values should be used with clinical judgement in examining the patient's clinical picture for diagnosis. To establish a diagnosis of WI versus myocardial injury, there must be a demonstrated rise and/or fall in the troponin values, in addition to ischemic symptoms, EKG changes, new regional wall motion abnormality, and/or angiographical evidence. PLEASE NOTE: REFERENCE RANGES EDITED 17 Performed By: #### L100.0100, L500.2500, L501.4010 #### [facility] [address] [place], [place], [address] ENDOCRINOLOGY VISIT Observed: 02/24/2018 Status: F Source: [place] REPORT 10:26 AM [facility] [address] [place] [address] OFFICE VISIT Date of Service: 02/07/18 MR#: [id number] Acct: [id number] Name: ELOISA CORDOVA Rep #: [id number] : 1990 Provider: Danielle Segundo NP Age/Sex: 28/M Location: [facility] Status: Signed HPI History of present illness [...] Position Sitting Intake Visit Reasons: 6 M Graphics Coordinator Required: No Accompanied by: Self Is patient [...] Medications New: Discontinued: insulin glargine (U-100) (Basaglar KpnwRs95 units (0.26 mL) Sub-Q QHS E10.9 Omayra [...] Status: F Source: [place] 2:47 PM [facility] TYPE CODE TESTS RESULT OUT OF [...] 6 Performed By: #### L500.4050, L500.4100 #### [facility] [address] [place], [place], [address] LIPID PROFILE Collected: 2018 Status: F Source: [place] 2:47 PM [facility] TYPE CODE TESTS RESULT OUT OF [...] 11 Performed By: #### L500.4050, L500.4100 #### [facility] [address], [place], [address] MICROALB:CREAT Collected: 2018 Status: F Source: [place] RATIO,RANDOM UR 2:47 PM [facility] REPOS[facility] TYPE CODE TESTS RESULT OUT OF RANGE REFERENCE UNITS LAB L501.1200 NO RANGE EST. mg/dL Normal UR CREAT 181.00 LAB L502.0500 NO RANGE EST. mg/L Normal 18.7 MICROALBUMIN ,UR LAB L502.0600 <30 mg/g CRE mg/g CRE Normal 10.3 MALB:CREAT Performed By: #### L502.0250, L501.9985 #### [facility] [address] [facility] [place], [place], [address] HEMOGLOBIN A1C Collected: 2018 Status: F Source: [place] 2:47 PM [facility] TYPE CODE TESTS RESULT OUT OF RANGE REFERENCE UNITS LAB L501.9985 4.2-6.3 % High HGB A1C 9.3 Performed By: #### L502.0250, L501.9985 #### [facility] [address] [place], [address] ALLERGIES ALLERGIES DATE TYPE / CODE NAME / CODE REACTION SEVERITY SOURCE 08/02/2018 Drug No Known Unknown [facility] Allergy/4160 Allergies/F00 Hospital 49351(SNOMED 3680559(RXNOR Repository CT) M) ENCOUNTERS ENCOUNTERS ADMIT/DISCHARGE ACCOUNT ADMITTING ENCOUNTER LOCATION SOURCE NUMBER CLASS 08/02/2018/ [id number] [place] 9 3 [facility] ing:ED Repository 08/01/2018 [id number] Ambulatory [place] 8 [facility] ing:PT Repository 07/23/2018 19917 Ambulatory Building:[facility] Practices Repository 07/23/2018 [id number] Ambulatory [place] 4 [facility] ing:MTRAD Repository 07/21/2018/ [id number] Ambulatory BMS[facility] [place] [facility] 1 [facility] 06/14/2018 [id number] Ambulatory [place] 6 [facility] ing:LAB Repository 06/14/2018/ [id number] Ambulatory BMSBuilding:B [place] 8 5 [facility] Repository 04/08/2018/ [id number] [place] 8 3 [facility] ing:ED Repository 2018 [id number] Ambulatory [place] 9 [facility] ing:LAB Repository 02/07/2018/ [id number] Ambulatory BMSBuilding:B [place] 8 7 [facility] Repository PAYERS PAYERS ENCOUNTER GUARANTOR PAYER SUBSCRIBER SOURCE 08/02/2018 ELOISA CROWDEROB: [place] [id number] Insurance:ANTHEMPolic [id number] [facility] y Number: [place], [place] [id number] Repository [address]Vpk: (124) leo Date:7249-67-18XA [phone] (HP) [address] [address]AF: 08/02/2018 Secondary NOT GIVENUNK [place] Insurance:SELF PAY [facility] Hospital Number: Effective Repository Date:2018-08-02 08/01/2018 ELOISA Beckwith Primary ELOISA Beckwith DAILDOB: [place] [id number] Insurance:ANTHEMPolic [id number] [facility] y Number: [place], [place] [id number] Repository [address]Orb: 330 leo Date:3927-05-91JN [phone] () [address] [place] [address]FT: 08/01/2018 Secondary NOT GIVENUNK [place] Insurance:SELF PAY [facility] Hospital Number: Effective Repository Date:2018-07-23 07/23/2018 Eloisa Beckwith Primary Eloisa Beckwith DailDOB: [place] Practices DailDOB: Insurance:[place] [id number] Repository BC/BSPolicy Number: [facility] [id number] [facility] [address]Eud: (315) [place] [address]Tuw: Date:1876-63-57Obit [id number] () Name:[facility] Sarah ()Tel: [phone]) [phone], [place] [phone] () [id number]: 07/23/2018 Secondary [place] DailDOB: [place] Practices Insurance:[place] [id number] Repository /BSPolicy Number: [id number] [place], [place] Date: [address]Nqx: (264) 1953-38-70Njsy [phone] () Name:[address], [place] [address]NV: 07/23/2018 ELOISA Beckwith Primary ELOISA Beckwith DAILDOB: [place] [id number] Insurance:ANTHEMPolic [id number] [facility] [place] y Number: [place], [place] [id number] Repository [address]Mtf: (330) leo Date:0156-78-84RE [phone] () [address], [place] [address]DR: 07/23/2018 Secondary NOT GIVENUNK [place] Insurance:SELF PAY [facility]: Effective Repository Date:2018-07-23 07/21/2018 ELOISA Beckwith Primary ELOISA Beckwith DAILDOB: [place] [id number] Insurance:ANTHEMPolic [id number] [facility] [place] y Number: [place] [id number] Repository [address]Mzq: (330) leo Date:8951-82-07UO [phone] () [address], [place] [address]IA: 07/21/2018 Secondary NOT GIVENUNK [place] Insurance:SELF PAY [facility] Number: Effective Repository Date:2018-07-21 06/14/2018 ELOISA Beckwith Primary ELOISA Beckwith DAILDOB: [place] [id number] Insurance:ANTHEMPolic [id number] [facility] [place] y Number: [place] [id number] Repository [address]Mib: (330) leo Date:9522-08-84EJ [phone] () [address]GKS[place], [place] [address]WE: 06/14/2018 Secondary NOT GIVENUNK [place] Insurance:SELF PAY [facility] Number: Effective Repository Date:2018-06-14 06/14/2018 ELOISA Beckwith Primary ELOISA Beckwith DAILDOB: [place] [id number] Insurance:ANTHEMPolic [id number] [facility] [place] y Number: [place] [id number] Repository [address]Dlj: (330) leo Date:5480-26-66HC [phone] () [address], [place] [address]KF: 06/14/2018 Secondary NOT GIVENUNK [place] Insurance:SELF PAY [facility] Number: Effective Repository Date:2018-06-14 04/08/2018 ELOISA Beckwith Primary ELOISA CARDENASLDOB: [place] [id number] Insurance:ANTHEMPolic [id number] [facility] [place] y Number: [place], [place] [id number] Repository [address]Czd: 330 leo Date:8461-87-53TR [phone] () [address], [place] [address]QO: 04/08/2018 Secondary NOT GIVENUNK [place] Insurance:SELF PAY [facility] Number: Effective Repository Date:2018-04-08 2018 ELOISA CARDENASL1520 Primary ELOISA CARDENASLDOB: [place] Insurance:ANTHEMPolic [id number] [facility], y Number: [facility] [address]Vfw: [id number] Repository leo Date:0911-99-01FC () [address], [place] [address]ZE: 2018 Secondary NOT GIVENUNK [place] Insurance:SELF PAY [facility] Number: Effective Repository Date:2018 2018 ELOISA CARDENASL1520 Primary ELOISA CROWDEROB: [place] Insurance:ANTHEMPolic [id number] [facility], y Number: [facility] [address]Rof: [id number] Repository leo Date:8584-58-31TV () [address], [place] [address]BZ: 2018 Secondary NOT GIVENUNK [place] Insurance:SELF PAY [facility] Number: Effective Repository Date:2018
== END 2018-08-02 13:05 | disposition home or self-care (01) ==
LOC: ED 12:46
PROVIDERS: Emergency Provider Emergency Medicine
DX: R10.9 Unspecified abdominal pain (principal); R51 Headache; R19.7 Diarrhea, unspecified; R11.0 Nausea; E10.9 Type 1 diabetes mellitus without complications
CPT/HCPCS: 99282

== ENCOUNTER → 2018-09-20 17:01 | Outpatient (CLI) | payer BC, SELFPAY ==
[2018-09-20 15:58] VITALS: BMI 27.2
[2018-09-20 17:56] LABS: Hemoglobin A1c 9.3 % (4.2-6.3)
[2018-09-20 18:25] LABS: ALB/GLOB Ratio 1.2 RATIO (0.9-2.4); AST(SGOT) 10 U/L (15-37); Alanine Aminotransfer ALT/SGPT 16 U/L (16-61); Albumin, Serum 4.1 g/dL (3.2-5.0); Alkaline Phosphatase 62 U/L (45-117); Anion Gap 7 (5-15); BUN 15 mg/dL (7-18); BUN/Creat Ratio 20.1 RATIO (10-20); Calcium,Total 8.8 mg/dL (8.5-10.1); Chloride 105 mmol/L (98-107); Creatinine, Serum 0.75 mg/dL (0.70-1.30); EST Glomerular Filtration Rate 134 mL/min (>60); Est Glom Filt Rate - Afr Amer 162 mL/min (>60); Globulin 3.3 g/dL (2.2-4.2); Glucose 200 mg/dL (74-106); Protein, Total 7.4 g/dL (6.4-8.2); Sodium Level 139 mmol/L (136-145)
== END ==
PROVIDERS: Referring Provider Nurse Practitioner; Visit Provider Nurse Practitioner
DX: E10.65 Type 1 diabetes mellitus with hyperglycemia (principal)
CPT/HCPCS: 36415; 80053; 83036

== ENCOUNTER 2019-04-02 06:59 | Emergency (ER) | payer BC, SELFPAY ==
[2018-09-20 15:58] VITALS: BMI 27.2
[2019-04-02 07:00] VITALS: BP 128/96; PULSE 74; RESP 18; TEMP 36.4; O2SAT 100; BMI 28.3
--- NOTE | 2019-04-02 07:13 | EKG12_ITS ---
Test Reason : CP Blood Pressure : / mmHG Vent. Rate : 072 BPM Atrial Rate : 072 BPM P-R Int : 174 ms QRS Dur : 080 ms QT Int : 382 ms P-R-T Axes : 040 044 026 degrees QTc Int : 418 ms Normal sinus rhythm Normal ECG Confirmed by ALLISON OJEDA, LISETH ([id number]), science editor JOELLE MANRIQUEZ (1980) on 04/03/2019 2:07:31 PM Referred By: ADAM Confirmed By:LISETH COOPER MD
--- NOTE | 2019-04-02 07:13 | RAD_ITS ---
STUDY: X-RAY CHEST REASON FOR EXAM: Male, 29 years old. Chest pain TECHNIQUE: PA and lateral views of the chest. COMPARISON: 04/08/2018 FINDINGS: The lungs are clear and expanded. There is no demonstrated pleural abnormality. Normal size heart. Normal mediastinum and braden. Normal visualized pulmonary arteries. Normal visualized aortic arch and descending thoracic aorta. Normal visualized thoracic spine. Normal visualized ribs, clavicles, and shoulders. There is no demonstrated abnormality of the visualized soft tissue structures of the upper abdomen. RAD/Chest PA and Lateral IMPRESSION: Normal x-ray examination of the chest. Electronically Signed: Tobin Palm MD at 8:10 EDT Tel , Service support ,
[2019-04-02] MEDS: Ketorolac 30 MG/ML Syringe IV (07:19)
[2019-04-02 07:28] LABS: Absolute Lymphocyte Count 1.92 X10^3/uL (0.83-4.51); Absolute Neutrophil Count 3.1 X10^3/uL (2.0-7.7); Basophil# 0.04 X10^3/uL; Basophil% 0.7 % (0-1); Eosinophil# 0.21 X10^3/uL; Eosinophils% 3.6 % (0-5); Hematocrit 47.4 % (40-54); Hemoglobin 15.6 g/dL (13.0-16.5); Lymphocyte # 1.92 X10^3/ul (4.0); Lymphocyte % 32.9 % (19-41); Mean Corp Hgb Conc 32.9 g/dL (32-36); Mean Corpuscular Hgb 29.8 pg (27.0-32.0); Mean Corpuscular Volume 90.6 fL (80-94); Mean Platelet Vol. 9.7 fl (6.2-12.0); Monocyte# 0.51 X10^3/uL; Monocyte% 8.7 % (0-10); NRBC Flagged by Analyzer 0 % (0-5); Neutrophil # 3.14 X10^3/uL (2.7-7.7); Neutrophil % 53.9 % (47-70); Platelet Count 272 K/mm3 (150-450); RBC Distribution Width SD 36.8 fl (35.1-43.9); Red Blood Count 5.23 M/mm3 (4.6-6.2); White Blood Count 5.8 K/mm3 (4.4-11.0)
[2019-04-02 07:37] LABS: D-Dimer Quantitative (DVT/PE) < 0.27 FEU/ug/m (0.27-0.49)
--- NOTE | 2019-04-02 07:40 | ED.VISSUMM ---
- ER Visit Summary Date of Service: 04/02/19 Chief Complaint: Chest pain History of Present Illness: The patient is a 29 M diabetic patient who presents with 1 hour of chest pain. He describes it as a tightness in the anterior aspect of his chest around his sternum. He states it became sharp when he moves or stretches. 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 He states that yesterday was his day off and did not do anything out of the ordinary. He did golf which is not uncommon for him. He denies any part of the golfing that was strenuous or would have resulted in injury. He denies any cough. He is not having any difficulty breathing. No fevers or rashes. He has not had this before. No exertional chest pains. He tried to check his blood sugar this morning but his glucometer was broken. Physical Examination: Afebrile vital signs are stable Gen: Well-nourished well-developed Head: Normocephalic atraumatic Eyes: Perrl EOMI ENT: TMs clear no rhinorrhea moist mucous membranes Neck: Supple no lymphadenopathy no JVD nontender CVS: Regular rate rhythm no murmurs normal S1-S2 Respiratory: No distress clear to auscultation bilaterally chest oddly tender around the sternum Abdomen: Soft nontender nondistended normal bowel sounds no masses Back: Nontender Extremity: Nontender no edema Skin: Normal color no rash Neuro: alert orientated ?3 CN II-XII intact normal strength sensation reflexes gait cerebellar Psych: Normal affect normal mood Test Results: EKG demonstrated a normal sinus rhythm at a rate of 72 with no concerning features of ACS no ectopy. Chest x-ray was negative. Normal mediastinal silhouette. D-dimer is negative. Troponin is negative. Blood sugar elevated 13. CBC is normal. Emergency Department Course and Treatment: Patient received a dose of Toradol. At this point patient will be discharged home with supportive care. I believe this to be chest wall related. It is reproducible with movement and touch. I recommend anti-inflammatories for the next couple of days. Follow-up with primary care if not improving Impression: 1. Acute chest wall pain This note was generated with Techtiumation software. It may contain incorrect words, spelling, and punctuation that were not noted in review of the chart prior to signing ED Disposition - Plan for ED Patient: Disposition: Home or Assisted Living Instructions: CHEST WALL PAIN, Costochondritis Referrals: Parminder Tsang III, MD [STAFF PHYSICIAN] - As Needed Additional Instructions: Your blood sugar this morning was 313. Use this to guide her insulin for the day. Obtain what you need to to fix the glucometer. I recommend Motrin 600 mg every 6-8 hours for pain.
[2019-04-02 07:42] LABS: Anion Gap 8 (5-15); BUN 15 mg/dL (7-18); BUN/Creat Ratio 16.7 RATIO (10-20); Calcium,Total 8.6 mg/dL (8.5-10.1); Chloride 104 mmol/L (98-107); EST Glomerular Filtration Rate 108 mL/min (>60); Est Glom Filt Rate - Afr Amer 131 mL/min (>60); Estimated Creatinine Clearance 131.31 ml/min; Glucose 313 mg/dL (74-106); Potassium 3.9 mmol/L (3.5-5.1); Sodium Level 139 mmol/L (136-145)
[2019-04-02 08:06] VITALS: BP 107/79; PULSE 72; RESP 15; O2SAT 98
== END 2019-04-02 08:06 | disposition home or self-care (01) ==
PROVIDERS: Emergency Provider Emergency Medicine
DX: R07.89 Other chest pain (principal); E11.9 Type 2 diabetes mellitus without complications
CPT/HCPCS: 71046; 80048; 84484; 85025; 85379; 93005; 96374; 99284; A4216

== ENCOUNTER 2019-07-25 06:59 | Emergency (ER) | payer BC, SELFPAY ==
[2019-07-25 07:00] VITALS: BP 126/71; PULSE 104; RESP 22; TEMP 36.2; O2SAT 100; BMI 23.0
[2019-07-25 07:10] LABS: Bedside Glucose 228 mg/dL (70-110)
[2019-07-25 07:36] LABS: Absolute Lymphocyte Count 0.67 X10^3/uL (0.83-4.51); Absolute Neutrophil Count 15.8 X10^3/uL (2.0-7.7); Basophil# 0.08 X10^3/uL; Basophil% 0.4 % (0-1); Eosinophil# 0.06 X10^3/uL; Eosinophils% 0.3 % (0-5); Hematocrit 52.9 % (40-54); Lymphocyte # 0.67 X10^3/ul (4.0); Lymphocyte % 3.8 % (19-41); Mean Corp Hgb Conc 34.4 g/dL (32-36); Mean Corpuscular Hgb 30.4 pg (27.0-32.0); Mean Corpuscular Volume 88.3 fL (80-94); Mean Platelet Vol. 9.8 fl (6.2-12.0); Monocyte# 1.14 X10^3/uL; Monocyte% 6.4 % (0-10); NRBC Flagged by Analyzer 0 % (0-5); Neutrophil # 15.75 X10^3/uL (2.7-7.7); Neutrophil % 88.6 % (47-70); Platelet Count 307 K/mm3 (150-450); RBC Distribution Width CV 11.2 % (11.6-14.6); RBC Distribution Width SD 35.9 fl (35.1-43.9); Red Blood Count 5.99 M/mm3 (4.6-6.2); White Blood Count 17.8 K/mm3 (4.4-11.0)
[2019-07-25] MEDS: proMETHazine 25 MG/ML Syringe 12.5 MG IV (07:37)
[2019-07-25] MEDS: Dicyclomine 20 MG/2 ML Vial IM (07:37)
[2019-07-25] MEDS: 0.9% Normal Saline 1,000 ML 1000 ML IV (07:37)
[2019-07-25 07:40] LABS: Hemoglobin 18.2 g/dL (13.0-16.5)
--- NOTE | 2019-07-25 07:41 | ED.DCSUM_ITS ---
- ER Visit Summary Date of Service: 07/25/19 Chief Complaint: [Vomiting and diarrhea] History of Present Illness: The patient is a 29 M [presents to the emergency department complaint of vomiting and diarrhea that started last evening around 1 AM. Patient states that he thinks he is thrown up more than 10 times and has had just as much watery stool. Patient states that his 7-year-old son had a similar illness 4 days ago. Patient denies any fever although he said some chills. He describes abdominal cramping. He denies urinary symptoms. Patient is a diabetic. Patient has had prior appendectomy.] Physical Examination: [HEENT-PERRLA, EOMI. Cranial nerves II through XII david sly intact. TMs clear. Mucous membranes dry. No adenopathy. Cardiovascular-regular rate and rhythm without murmur or ectopy Lungs-clear to auscultation, chest wall stable without crepitus or subcu emphysema Abdomen-hyperactive bowel sounds with some mild diffuse tenderness. There is no rebound, rigidity, or peritoneal signs. Extremities-intact ?4, normal range of motion, normal pulses, atraumatic] Test Results: [Fingerstick blood sugar on arrival was 228.] CBC with differential obtained showing a 17.8, hemoglobin 18, hematocrit 53, platelets 307. Chemistries unremarkable. Glucose was 211. CO2 and anion gap were normal. Urinalysis showed 15 ketones and positive for nitrites however no signs of infection. Serum acetone was negative. Emergency Department Course and Treatment: [Patient was given 2 L of normal saline. Patient was given Phenergan 12.5 mg IV. Patient had no further vomiting. He was able to tolerate a p.o. challenge.] Patient was treated with Bentyl 20 mg IM. Treatment Plan: [Given a prescription for Zofran and Bentyl.] Disposition: [Discharged home in stable condition. Patient advised to push fluids. Patient advised to monitor his blood sugars closely. Patient to return if persistent vomiting, dehydration, elevated blood sugars, or condition should worsen anyway.] Impression: [Viral gastroenteritis Dehydration] This note was generated with [employer] dictation software. It may contain incorrect words, spelling, and punctuation that were not noted in review of the chart prior to signing ED Disposition - Plan for ED Patient: Referrals: Care Physician,No Primary [Primary Care Provider] -
[2019-07-25 07:50] LABS: Anion Gap 7 (5-15); BUN 15 mg/dL (7-18); BUN/Creat Ratio 14.6 RATIO (10-20); Calcium,Total 9.8 mg/dL (8.5-10.1); Chloride 102 mmol/L (98-107); Creatinine, Serum 1.03 mg/dL (0.70-1.30); EST Glomerular Filtration Rate 92 mL/min (>60); Est Glom Filt Rate - Afr Amer 111 mL/min (>60); Glucose 211 mg/dL (74-106); Potassium 3.8 mmol/L (3.5-5.1); Sodium Level 137 mmol/L (136-145)
[2019-07-25 08:04] LABS: Color, Urine Amber (Yellow); Glucose, Dipstick 50 mg/dl (Normal); Ketone-Dipstick 15 mg/dl (Negative); Leukocyte Esterase-Dipstick 25 /ul (Negative); Nitrite-Dipstick Positive (Negative); Occult Blood-Urine 25 /ul (Negative); Protein-Dipstick 30 mg/dl (Negative); Specific Gravity, Urine 1.025 (1.002-1.030); Urine Clarity Sl. Cloudy (Clear); Urine Urobilinogen 1 mg/dl (Normal)
[2019-07-25 08:06] LABS: Urine Bilirubin Dipstick 1 mg/dL (Negative)
[2019-07-25] MEDS: 0.9% Normal Saline 1,000 ML 999 ML IV (08:27)
[2019-07-25 08:52] LABS: Amorphous Sediment 1+ URATE; Bacteria 2+ /hpf (None Seen); Mucous, Urine 2+ /hpf (<or=2+); Red Blood Cells-Urine 0-5 SEEN /hpf (0-5); Squamous Epithelial Cells - UA 0-5 SEEN /hpf (0-5); White Blood Cells 0-5 SEEN /hpf (0-5)
--- NOTE | 2019-07-25 09:00 | ED.DEP ---
ED Disposition - Plan for ED Patient: Instructions: GASTROENTERITIS, Viral (8y-Adult) Prescriptions: Dicyclomine HCl [Bentyl] 20 mg PO TIDAC #20 cap Transmission Status: Pending to [id number] Ondansetron [Zofran Odt] 4 mg PO Q8H PRN PRN #10 tab PRN Reason: Nausea Transmission Status: Pending to [id number] Referrals: Care Physician,No Primary [Primary Care Provider] - Abdoul Galvan MD [STAFF PHYSICIAN] - 3-5 Days
[2019-07-25 09:06] VITALS: BP 130/74; PULSE 62; RESP 15; O2SAT 98
[2019-07-25 14:37] LABS: Pathologist Review Reviewed
== END 2019-07-25 09:07 | disposition home or self-care (01) ==
LOC: ED 07:44
PROVIDERS: Emergency Provider Emergency Medicine
DX: A08.4 Viral intestinal infection, unspecified (principal); E86.0 Dehydration; E11.9 Type 2 diabetes mellitus without complications; Z79.4 Long term (current) use of insulin
CPT/HCPCS: 80048; 81001; 82009; 82962; 85025; 96361; 96372; 96374; 99283; J7030

== ENCOUNTER → 2020-03-19 | Outpatient (CLI) | payer BC, SELFPAY ==
[2020-03-09 08:31] VITALS: BMI 25.7
--- NOTE | 2020-03-19 15:12 | CT_ITS ---
STUDY: CT ABDOMEN AND PELVIS WITH CONTRAST REASON FOR EXAM: Male, 30 years old. Abdomen pain below umbilicus, Prev appy, Type 1 DB-insulin pump RADIATION DOSAGE (If Supplied By Facility): CTDIvol = ( 11.92 ) mGy, DLP = ( 941.77 ) mGycm TECHNIQUE: Transaxial images were obtained from the dome of the diaphragm to the symphysis pubis without oral contrast. Oral Gastrografin and 100mL Isovue-300 was administered. Sagittal and coronal images were reconstructed. Individualized dose optimization techniques were used for this CT. COMPARISON: None. FINDINGS: The visualized lung bases are unremarkable. The visualized portions of the heart are within normal limits. Normal liver. Normal gallbladder and extrahepatic biliary system. Normal spleen. Normal pancreas. Normal bilateral adrenal glands. Normal right kidney. Normal left kidney. Normal visualized stomach. Normal small intestine. Normal colon. There is non-visualization of the appendix. Normal abdominal aorta. Normal inferior vena cava. Normal retroperitoneum. Normal urinary bladder. Normal visualized prostate gland. Normal abdominal wall. Normal osseous structures. CT/Abdomen/Pelvis WITH Contrast IMPRESSION: Status post appendectomy. No acute process identified within the abdomen and pelvis. Electronically Signed: Prabhu Carvalho, at 18:04 EDT Tel , Service support ,
[2020-03-19 15:38] LABS: ALB/GLOB Ratio 1.2 RATIO (0.9-2.4); AST(SGOT) 12 U/L (15-37); Alanine Aminotransfer ALT/SGPT 17 U/L (16-61); Albumin, Serum 4.1 g/dL (3.2-5.0); Alkaline Phosphatase 63 U/L (45-117); Anion Gap 2 (5-15); BUN 10 mg/dL (7-18); BUN/Creat Ratio 13.5 RATIO (10-20); CRP < 2.90 mg/L (0.0-3.0); Calcium,Total 8.6 mg/dL (8.5-10.1); Chloride 106 mmol/L (98-107); Creatinine, Serum 0.74 mg/dL (0.70-1.30); EST Glomerular Filtration Rate 134 mL/min (>60); Est Glom Filt Rate - Afr Amer 162 mL/min (>60); Globulin 3.5 g/dL (2.2-4.2); Glucose 115 mg/dL (74-106); Potassium 3.8 mmol/L (3.5-5.1); Protein, Total 7.6 g/dL (6.4-8.2); Sodium Level 138 mmol/L (136-145)
[2020-03-19 16:18] LABS: Erythrocyte Sedimentation Rate 3 mm/hr (0-15)
[2020-03-19 16:20] LABS: Absolute Lymphocyte Count 2.53 X10^3/uL (0.83-4.51); Absolute Neutrophil Count 3.6 X10^3/uL (2.0-7.7); Basophil# 0.05 X10^3/uL; Basophil% 0.7 % (0-1); Eosinophil# 0.13 X10^3/uL; Eosinophils% 1.9 % (0-5); Hematocrit 45.8 % (40-54); Hemoglobin 15.7 g/dL (13.0-16.5); Lymphocyte # 2.53 X10^3/ul (4.0); Lymphocyte % 36.7 % (19-41); Mean Corp Hgb Conc 34.3 g/dL (32-36); Mean Corpuscular Hgb 30.4 pg (27.0-32.0); Mean Corpuscular Volume 88.8 fL (80-94); Mean Platelet Vol. 9.5 fl (6.2-12.0); Monocyte# 0.57 X10^3/uL; Monocyte% 8.3 % (0-10); NRBC Flagged by Analyzer 0 % (0-5); Neutrophil # 3.61 X10^3/uL (2.7-7.7); Neutrophil % 52.3 % (47-70); Platelet Count 309 K/mm3 (150-450); RBC Distribution Width SD 35.6 fl (35.1-43.9); Red Blood Count 5.16 M/mm3 (4.6-6.2); White Blood Count 6.9 K/mm3 (4.4-11.0)
== END | disposition home or self-care (01) ==
PROVIDERS: PCP Internal Medicine; Referring Provider Internal Medicine; Visit Provider Internal Medicine
DX: R10.9 Unspecified abdominal pain (principal)
CPT/HCPCS: 36415; 74177; 80053; 85025; 85652; 86140; Q9967

== ENCOUNTER 2020-07-08 17:00 | Outpatient (RCR) | payer BC, SELFPAY ==
[2020-04-23 14:45] VITALS: BMI 25.7
--- NOTE | 2020-06-09 18:19 | HP.PTEVAL_ITS ---
Patient's Visit Information ELOISA CORDOVA is a 30 year old M referred to Physical Therapy by Dr. Nellie Galloway, SHARONDA with a diagnosis of Lumbar radiculopathy.. Date of Evaluation: 06/09/20 Physical Therapist: Abdoul Moreira, DPT, OCS, CSCS - Visit Plan Frequency: 2x /Week Duration: 4-6 Weeks Plan: 2x/week for 4-6 for . 1. DTR to R scap muscle tender area and stretch same. 2. Teach HS/quad, hip flexor stretches and give as HEP. 3. Teach Soinal ROM lumbar and give as HEP. 4. Teach core strength ex adn progress to HEP - Subjective Got some back issues, slipped L4 giving R leg [id number]. Pinch in neck at times. Treated by Dr. Galloway weekly and on and off since July. LBP in last week every other day, taking CBD gummies and have helped 50% LBP to 7 wehn flared up but not bad lately. No LBP since Monday worse with work week. R shoulder 5/10 scapular pain. Intermittent. 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 Avoids lifting greater than 50#, avoids bending and twisting. Basic ADLs are OK. Hard to get to sleep some nights. R leg numbness and tingling sometimes but not lately, not in 1.5 weeks. Can't sit too long as it hurts, 2 hrs max. Hobbies is golfing which is getting harder over the years. - Pain LBP Pain Intensity (Out of 10): 0 Pain Intensity Range: 0, 7 R scap Pain Intensity (Out of 10): 5 Pain Intensity Range: 0, 5 Comment: fairly constant - Objective Walks normal and transfers normal today. No pain except R scap inferior which has a tender adn palpable knot. Neck aROm is stiff symmetricallya nd not painful . 55 rotation with contralateral tenderness. 50 ext but can get more with OP not painful. Full scap and UE AROM without pain. 2/3 reflexes bi/tri/patella/achilles. Sensation is WNL in UE and LE to gross light touch. Strength UE 4+/5 without pain , LE 4- in hips, 4+ in knees and ankles without myotomal abnormalities. L/SAROM is mod deficits in extension. mod deficits in flexion just tightness in parapsinals. SB is min tight with contralateral pain. - spinal compression test. - slump. - SLR. max tightness in HS and quads and hip flexors. - Goals Goal 1:: I appropr core strength and spinal ROM, LE stretches to minimize future problems. Goal Time Frame: 4-6 Weeks Goal 2:: Pain in LB 1/10 at worst and manageable 1x/week Goal Time Frame: 4-6 Weeks Goal 3:: Oswestry <5/10 Goal Time Frame: 4-6 Weeks Goal 4:: Pt feel 85% improved in LB and scap pain overall adn sleep without interruption. Goal Time Frame: 4-6 Weeks Goal 5:: Work without increased pain in LB/LE Goal Time Frame: 4-6 Weeks - Rehabilitation Potential Physical Therapy Diagnosis: Lumbar radiculaopathy, knot in scap muscles R. Rehabilitation Potential: Good - Anticipated Interventions Patient/Client Instruction: Educate patient on: Condition, Plan of Care For the Purpose of:: To decrease pain, To increase ROM, To improve muscle performance and motor function, To increase tolerance to activity/condition/position, To improve ability of physical actions for home/community/work/leisure Therapeutic Exercise to Include: Strength training, Postural training, Flexibilty training, Passive ROM, Active ROM For the Purpose of:: To decrease pain, To increase ROM, To improve muscle performance and motor function, To increase tolerance to activity/condition/position, To improve ability of physical actions for home/community/work/leisure, To improve gait and locomotor functions Manual Therapy Techniques to Include: Trigger point massage, Soft tissue mobilization For the Purpose of:: To decrease pain Thank you for the opportunity to evaluate your patient. For Medicare and Medicare HMO plans, please review the plan of care and approve it. It will need to be FAXED BACK to us at [phone] for Medicare purposes. For Medicare only, by signing this I certify the plan of care. Please let me know if there are questions or concerns regarding this plan of care. Physician Signatur e: Date:
--- NOTE | 2020-09-16 15:46 | HP.PT.NRP ---
ELOISA CORDOVA was seen in my office for initial evaluation on 06/09/20. The following Plan of Care was established for this patient: Initial Frequency: 2x /Week Initial Duration: 4-6 Weeks Patient/Client Instruction: Educate patient on: Condition, Plan of Care For the Purpose of:: To decrease pain, To increase ROM, To improve muscle performance and motor function, To increase tolerance to activity/condition/position, To improve ability of physical actions for home/community/work/leisure Therapeutic Exercise to Include: Strength training, Postural training, Flexibilty training, Passive ROM, Active ROM For the Purpose of:: To decrease pain, To increase ROM, To improve muscle performance and motor function, To increase tolerance to activity/condition/position, To improve ability of physical actions for home/community/work/leisure, To improve gait and locomotor functions Manual Therapy Techniques to Include: Trigger point massage, Soft tissue mobilization For the Purpose of:: To decrease pain This patient was last seen in our office 07/08/20. Pertinent comments regarding their Physical therapy will appear below: Pt seen 5 visits of POC and then neglected to schedule any further visits. At this point, it has been over two months and I will discontinue due to nonattendance. At this point I will be discontinuing this patient from physical therapy. I would be happy to see this patient again in the future if found appropriate by the physician. Thank you! Abdoul Moreira, DPT, OCS, CSCS
== END 2020-07-08 19:00 | disposition home or self-care (01) ==
LOC: PT 17:00
PROVIDERS: PCP Internal Medicine; Referring Provider Chiropractor; Visit Provider Chiropractor
DX: M54.16 Radiculopathy, lumbar region (principal)
CPT/HCPCS: 97110; 97140; 97162

== ENCOUNTER 2021-01-20 12:00 | Outpatient (RCR) | payer BC, SELFPAY ==
[2020-04-23 14:45] VITALS: BMI 25.7
== END 2021-01-20 19:00 | disposition home or self-care (01) ==
LOC: MASS 12:00
PROVIDERS: PCP Internal Medicine
DX: Z00.00 Encounter for general adult medical examination without abnormal findings (principal)

== ENCOUNTER → 2021-06-19 07:20 | Outpatient (CLI) | payer OTHER, SELFPAY ==
--- NOTE | 2021-06-19 07:24 | MRI_ITS ---
STUDY: MRI LUMBAR SPINE WITHOUT CONTRAST REASON FOR EXAM: Male, 31 years old. Lower and mid back pain and down right leg. Burning sensation on sciatic nerve. TECHNIQUE: Standardized fat and water weighted pulse sequences were obtained in the sagittal and axial planes. COMPARISON: CT abdomen and pelvis with contrast 03/19/2020. FINDINGS: T11-T12 and T12-L1: (Sagittal only). Normal endplates. Normal disc height, hydration and morphology. No ventral extra dural defect. Normal central canal and bilateral intervertebral neural foramina. Normal lumbar lordosis. There is no substantial scoliosis. Normal conus medullaris that terminates at the mid L1 vertebral body level. L1-2: Normal endplates. Normal disc height, hydration and morphology. Normal bilateral facet joints. Normal central canal and bilateral lateral recesses. Normal bilateral intervertebral neural foramina. L2-3: Normal endplates. Normal disc height, hydration and morphology. Normal bilateral facet joints. Normal central canal and bilateral lateral recesses. Normal bilateral intervertebral neural foramina. L3-4: Normal endplates. Normal disc height, hydration and morphology. Normal bilateral facet joints. Normal central canal and bilateral lateral recesses. Normal bilateral intervertebral neural foramina. L4-5: Normal endplates. Normal disc height, hydration and morphology. Normal bilateral facet joints. Normal central canal and bilateral lateral recesses. Normal bilateral intervertebral neural foramina. L5-S1: Normal endplates. Normal disc height, hydration and morphology. Normal bilateral facet joints. Normal central canal and bilateral lateral recesses. Normal bilateral intervertebral neural foramina. Normal visualized sacral ala. Normal visualized paraspinous soft tissue structures. MRI/Spine Lumbar (Routine) IMPRESSION: Normal unenhanced MR examination of the lumbar spine. Electronically Signed: Omkar Rosales MD at 14:55 EST , Service support ,
== END ==
PROVIDERS: PCP Internal Medicine; Referring Provider Orthopaedic Surgery; Visit Provider Orthopaedic Surgery
DX: M54.16 Radiculopathy, lumbar region (principal)
CPT/HCPCS: 72148

== ENCOUNTER 2021-08-16 20:24 | Emergency (ER) | payer OTHER, SELFPAY ==
[2021-08-16 20:26] VITALS: BP 142/91; PULSE 106; RESP 18; TEMP 36.9; O2SAT 99
[2021-08-16 21:06] VITALS: O2SAT 98
[2021-08-16 21:10] VITALS: BP 127/91; PULSE 99; RESP 16; O2SAT 98
--- NOTE | 2021-08-16 21:18 | ED.VIS.DYS ---
HPI History of Present Illness Chief Complaint: Shortness of Breath Narrative Narrative: 31-year-old male presenting with shortness of breath for the last 4 hours. He states he has a cough as well. He denies having fever, chills. He denies any chest pain. Patient tried nothing for cough prior to arrival. He states that his father is a med VIP at [facility] and he called Dr. Bell who told him to come to the emergency room to rule out PE. Patient has a history of PE. His only risk factor would be COVID-19 recent history. He is a type I diabetic and states that when he had COVID and really the biggest issue that he had was his blood sugars but he was able to give himself extra insulin and get through this. He stated that when his blood sugars were trended higher he felt nauseous but once he was able to get it under control he did fairly well. Patient just recently had Covid test performed which was negative. [facility] Medical History Anxiety Back problem Chronic neck and back pain Type 1 diabetes mellitus Unexplained weight loss Home Medications glucagon (human recombinant) 1 mg injection kit 1 mg IM ONCE #1 ea 02/07/18 [Rx Last Taken Unknown] Novolog U-100 Insulin aspart 100 unit/mL subcutaneous solution 100 unit SC DAILY #90 ml NS 10/14/20 [Rx Last Taken Unknown] Allergy/AdvReac Type Severity Reaction Status Date / Time No Known Allergies Allergy Verified 08/16/21 20:26 Family History Mother Cancer Father Hypertension Diabetes Hyperlipidemia Grandmother Hypertension Diabetes Hyperlipidemia COPD (chronic obstructive pulmonary disease) Surgical History Hx of appendectomy Social History Smoking Status: Never smoker second hand exposure: No alcohol intake: current alcohol intake frequency: a few times a month substance use type: marijuana and other details: marijuana card ROS ROS ED Constitutional Constitutional ED: Denies chills or fever(s) Eyes Eyes: Denies blurry vision or diplopia ENT ENT ED: Denies rhinorrhea or sore throat Cardiovascular Cardiovascular: Denies chest pain or palpitations Respiratory/Chest Respiratory/Chest: Reports cough and dyspnea Gastrointestinal Gastrointestinal: Denies abdominal pain, nausea or vomiting Genitourinary Genitourinary ED: Denies dysuria Musculoskeletal Musculoskeletal: Denies arthralgias or myalgias Integumentary Denies Abrasions or rash Neurologic Neurologic: Denies headache(s), paresthesias or weakness Psychiatric Psychiatric: Denies anxiety or depression EXAM Physical Exam Const Vital Signs: 08/16/21 20:26 08/16/21 21:06 08/16/21 21:10 Temperature 98.4 F Temperature Source Temporal Pulse Rate 106 H 99 Respiratory Rate 18 16 Respiratory Effort Normal Respiratory Depth Normal Respiratory Pattern Normal Blood Pressure 142/91 H 127/91 H Blood Pressure Mean 108 103 Pulse Ox 99 98 Oxygen Delivery Method Room Air Room Air Room Air 08/16/21 21:50 08/16/21 23:05 Temperature Temperature Source Pulse Rate 99 Respiratory Rate 17 Respiratory Effort Respiratory Depth Respiratory Pattern Blood Pressure 117/81 H Blood Pressure Mean 93 Pulse Ox 98 97 Oxygen Delivery Method Room Air Room Air Positive well nourished General Appearance ED: NAD; Negative for pallor HEENT Reports moist mucous membranes atraumatic Eyes PERRL and EOMs intact bilaterally Neck no lymphadenopathy and supple Resp normal respiratory effort Cardio regular rhythm Rate: tachycardic GI Palpation: soft Neuro oriented x3, CN's II-XII intact bilaterally and no sensory deficits noted Sensorium / Orientation: alert Motor Exam: strength 5/5 throughout Psych mental status grossly normal Thought Process: normal thought process Skin General Skin Exam: Negative for jaundice or pallor MDM MDM MDM Narrative Medical decision making narrative: 31-year-old male presenting with dyspnea. Is been ongoing for hours. He describes a cough as well. Patient is not having any chest pain. He has not taken anything for cough prior to arrival. He states he was sent in to get a CTA of the chest to rule out PE because he recently had COVID-19. He is tachycardic so I cannot PERC him. Given recent COVID I did not do a D-dimer and just obtained a CTA of the chest. CBC obtained shows a leukocytosis of 16.7 however this is isolated and I have found no source of infection. Hemoglobin hematocrit are stable. Renal function and electrolytes are normal. Patient's glucose is 96. High-sensitivity troponin is 4. Again the patient is not having any chest pain. CTA of the chest does not identify any acute abnormality including PE, dissection, infiltrate. Patient's vital signs are normal and his pulse ox is 97 on 9%. Respiratory rate is 17-18, pulse is now 99 and he is afebrile. Given his negative work-up I believe he safe to be discharged home. I do not know the source of his leukocytosis is but he is otherwise stable. He will follow-up with his PCP to ensure resolution. Impression: 1. Dyspnea 2. Cough 3. History of COVID-19 Lab Data Attestation: I reviewed the patient's lab results. Labs: Laboratory Results - last 24 hr 08/16/21 08/16/21 21:47 21:47 WBC 16.7 H RBC 5.24 Hgb 16.1 Hct 45.9 MCV 87.6 MCH 30.7 MCHC 35.1 RDW Std Deviation 36.3 RDW Coeff of Sabino 11.3 L Plt Count 359 MPV 9.0 Immature Gran % (Auto) 0.300 Neut % (Auto) 82.9 H Lymph % (Auto) 10.2 L [place] % (Auto) 5.9 Eos % (Auto) 0.4 Baso % (Auto) 0.3 Absolute Neuts (auto) 13.9 H Absolute Lymphs (auto) 1.71 Nucleated RBC % 0 Sodium 138 Potassium 3.6 Chloride 105 Carbon Dioxide 27.0 Anion Gap 6 BUN 9 Creatinine 0.76 Estim Creat Clear Calc 5.23 Est GFR (MDRD) Af Amer 156 Est GFR (MDRD) Non-Af 129 BUN/Creatinine Ratio 11.9 Glucose 96 Calcium 9.0 Total Bilirubin 0.60 AST 14 L ALT 27 Alkaline Phosphatase 59 Troponin I High Sens 4 Total Protein 7.7 Albumin 4.2 Globulin 3.5 Albumin/Globulin Ratio 1.2 Radiography Diagnostic Testing: Clinical Impression(s) from Imaging Studies Chest CTA 08/16/21 21:25 IMPRESSION: No pulmonary embolism or evidence of acute cardiopulmonary disease. Electronically Signed: Aj Wilson DO at 23:47 EST , Discharge Plan Triage Chief Complaint: Shortness of Breath ED Provider: Clement Barron Dx/Rx/DC Orders Instructions: ED Dyspnea Prescriptions: No Action glucagon (human recombinant) 1 mg kit 1 mg IM ONCE Qty: 1 RF: 3 insulin aspart U-100 [Novolog U-100 Insulin aspart] 100 unit/mL solution 100 unit SC DAILY Qty: 90 RF: 3 Primary Care Provider: Anuradha Shell Referrals: Anuradha Shell DO [Primary Care Provider] - Disposition Disposition: Home, Self Care
--- NOTE | 2021-08-16 21:25 | EKG12_ITS ---
Test Reason : SOB Blood Pressure : / mmHG Vent. Rate : 094 BPM Atrial Rate : 094 BPM P-R Int : 162 ms QRS Dur : 086 ms QT Int : 360 ms P-R-T Axes : 052 044 020 degrees QTc Int : 450 ms Normal sinus rhythm Normal ECG Confirmed by AUDI OJEDA, EARL ([id number]), videotape editor JERICA DEAN ([id number]) on 08/17/2021 8:42:33 AM Referred By: ROBERT Confirmed By:EARL HUNTLEY MD
--- NOTE | 2021-08-16 21:25 | CT_ITS ---
STUDY: CTA CHEST REASON FOR EXAM: Male, 31 years old. dyspnea RADIATION DOSAGE (If Supplied By Facility): CTDIvol = ( 8.515 ) mGy, DLP = ( 12.28 ) mGycm TECHNIQUE: The examination was performed with the intravenous administration of IV 100mL Isovue-370. Post-processing of the angiographic images was performed, with multiplanar reformation and 3D reconstruction. Individualized dose optimization techniques were used for this CT. COMPARISON: None. FINDINGS: Suboptimal density of contrast in the pulmonary arteries between 230 and 240 [place] units. No significant motion artifact; suboptimal but diagnostic exam. No pulmonary artery filling defect to suggest pulmonary embolism. There is no evidence of right heart strain. Lungs are without airspace opacity or abnormal interstitial pattern. No pleural effusion or pneumothorax. Central airways normal in appearance. No nodule or mass. Heart is normal size. No mediastinal or hilar lymphadenopathy. Thoracic aortic arch is normal in appearance. Visualized base of the neck and extrathoracic soft tissues are normal. No axillary lymphadenopathy. Visualized portions of the upper abdomen are normal. There is no fracture or focal osseous lesion. No lytic or blastic bone lesion. CT/CTA Chest W/WO Contrast IMPRESSION: No pulmonary embolism or evidence of acute cardiopulmonary disease. Electronically Signed: Aj Wilson DO at 23:47 EST ,
[2021-08-16 21:50] VITALS: O2SAT 98
[2021-08-16 21:56] LABS: Absolute Lymphocyte Count 1.71 X10^3/uL (0.83-4.51); Absolute Neutrophil Count 13.9 X10^3/uL (2.0-7.7); Basophil# 0.05 X10^3/uL; Basophil% 0.3 % (0-1); Eosinophil# 0.07 X10^3/uL; Eosinophils% 0.4 % (0-5); Hematocrit 45.9 % (40-54); Hemoglobin 16.1 g/dL (13.0-16.5); Lymphocyte # 1.71 X10^3/ul (0.83-4.51); Lymphocyte % 10.2 % (19-41); Mean Corp Hgb Conc 35.1 g/dL (32-36); Mean Corpuscular Hgb 30.7 pg (27.0-32.0); Mean Corpuscular Volume 87.6 fL (80-94); Monocyte# 0.98 X10^3/uL; Monocyte% 5.9 % (0-10); NRBC Flagged by Analyzer 0 % (0-5); Neutrophil # 13.85 X10^3/uL (2.7-7.7); Neutrophil % 82.9 % (47-70); Platelet Count 359 K/mm3 (150-450); RBC Distribution Width CV 11.3 % (11.6-14.6); RBC Distribution Width SD 36.3 fl (35.1-43.9); Red Blood Count 5.24 M/mm3 (4.6-6.2); White Blood Count 16.7 K/mm3 (4.4-11.0)
[2021-08-16 22:13] LABS: ALB/GLOB Ratio 1.2 RATIO (0.9-2.4); AST(SGOT) 14 U/L (15-37); Alanine Aminotransfer ALT/SGPT 27 U/L (16-61); Albumin, Serum 4.2 g/dL (3.2-5.0); Alkaline Phosphatase 59 U/L (45-117); Anion Gap 6 (5-15); BUN 9 mg/dL (7-18); BUN/Creat Ratio 11.9 RATIO (10-20); Chloride 105 mmol/L (98-107); Creatinine, Serum 0.76 mg/dL (0.70-1.30); EST Glomerular Filtration Rate 129 mL/min (>60); Est Glom Filt Rate - Afr Amer 156 mL/min (>60); Estimated Creatinine Clearance 5.23 ml/min; Globulin 3.5 g/dL (2.2-4.2); Glucose 96 mg/dL (74-106); Potassium 3.6 mmol/L (3.5-5.1); Protein, Total 7.7 g/dL (6.4-8.2); Sodium Level 138 mmol/L (136-145); Troponin-I HS 4 pg/mL (3.0-78.0)
[2021-08-16 23:05] VITALS: BP 117/81; PULSE 99; RESP 17; O2SAT 97
[2021-08-17 00:04] VITALS: BP 117/81; PULSE 99; RESP 16; O2SAT 97
== END 2021-08-17 00:05 | disposition home or self-care (01) ==
PROVIDERS: Emergency Provider Student in an Organized Health Care Education/Training Program; PCP Internal Medicine; Visit Provider Student in an Organized Health Care Education/Training Program
DX: R06.00 Dyspnea, unspecified (principal); E10.9 Type 1 diabetes mellitus without complications; D72.829 Elevated white blood cell count, unspecified; R05.9 Cough, unspecified; F12.90 Cannabis use, unspecified, uncomplicated; Z86.16 Personal history of COVID-19
CPT/HCPCS: 71275; 80053; 84484; 85025; 93005; 99284; Q9967; A4216

== ENCOUNTER 2021-08-17 13:26 | Outpatient (CLI) | payer OTHER, SELFPAY ==
[2021-08-17 15:29] LABS: Hemoglobin 15.5 g/dL (13.0-16.5); Mean Corp Hgb Conc 33.7 g/dL (32-36); Mean Corpuscular Hgb 30.2 pg (27.0-32.0); Mean Corpuscular Volume 89.5 fL (80-94); Mean Platelet Vol. 9.6 fl (6.2-12.0); Platelet Count 381 K/mm3 (150-450); RBC Distribution Width CV 11.5 % (11.6-14.6); RBC Distribution Width SD 37.4 fl (35.1-43.9); Red Blood Count 5.14 M/mm3 (4.6-6.2); White Blood Count 12.7 K/mm3 (4.4-11.0)
[2021-08-17 16:04] LABS: Erythrocyte Sedimentation Rate 7 mm/hr (0-20)
[2021-08-17 16:37] LABS: ALB/GLOB Ratio 1.1 RATIO (0.9-2.4); AST(SGOT) 12 U/L (15-37); Alanine Aminotransfer ALT/SGPT 23 U/L (16-61); Albumin, Serum 3.9 g/dL (3.2-5.0); Alkaline Phosphatase 60 U/L (45-117); Anion Gap 4 (5-15); BUN 9 mg/dL (7-18); BUN/Creat Ratio 12.5 RATIO (10-20); Calcium,Total 8.5 mg/dL (8.5-10.1); Chloride 105 mmol/L (98-107); Creatinine, Serum 0.72 mg/dL (0.70-1.30); EST Glomerular Filtration Rate 136 mL/min (>60); Est Glom Filt Rate - Afr Amer 165 mL/min (>60); Globulin 3.7 g/dL (2.2-4.2); Glucose 104 mg/dL (74-106); Potassium 3.8 mmol/L (3.5-5.1); Protein, Total 7.6 g/dL (6.4-8.2); Sodium Level 136 mmol/L (136-145); Thyroid Stim Hormone (TSH) 1.45 uIU/mL (0.358-3.74)
== END 2021-08-17 23:59 | disposition short-term general hospital (02) ==
LOC: MTLAB 13:27
PROVIDERS: PCP Internal Medicine; Referring Provider Nurse Practitioner; Visit Provider Nurse Practitioner
DX: D72.829 Elevated white blood cell count, unspecified (principal)
CPT/HCPCS: 36415; 80053; 84443; 85027; 85652; 86141; 87040

== ENCOUNTER → 2021-12-06 | Outpatient (CLI) | payer OTHER, SELFPAY ==
[2021-12-06 12:54] LABS: Anion Gap 3 (5-15); BUN 11 mg/dL (7-18); BUN/Creat Ratio 14.1 RATIO (10-20); Calcium,Total 8.4 mg/dL (8.5-10.1); Chloride 107 mmol/L (98-107); Creatinine, Serum 0.78 mg/dL (0.70-1.30); EST Glomerular Filtration Rate 124 mL/min (>60); Est Glom Filt Rate - Afr Amer 150 mL/min (>60); Glucose 254 mg/dL (74-106); Potassium 4.1 mmol/L (3.5-5.1); Sodium Level 137 mmol/L (136-145)
== END | disposition home or self-care (01) ==
LOC: LABSPEC 12:26
PROVIDERS: PCP Internal Medicine; Referring Provider Internal Medicine; Visit Provider Internal Medicine
DX: R68.89 Other general symptoms and signs (principal)
CPT/HCPCS: 80048; 83735

== ENCOUNTER → 2024-02-07 | Outpatient (CLI) | payer OTHER, SELFPAY ==
[2024-02-07 13:33] LABS: Microalbumin,Random Urine < 5.0 mg/L (NO RANGE EST.); Vitamin D,25 Hydroxy 40.3 ng/mL
[2024-02-07 13:42] LABS: AST(SGOT) 9 U/L (15-37); Alanine Aminotransfer ALT/SGPT 17 U/L (16-61); Albumin, Serum 3.7 g/dL (3.2-5.0); Alkaline Phosphatase 61 U/L (45-117); Anion Gap 4 (5-15); BUN 12 mg/dL (7-18); BUN/Creat Ratio 14.3 RATIO (10-20); Calcium,Total 8.5 mg/dL (8.5-10.1); Chloride 108 mmol/L (98-107); Cholesterol 137 mg/dL (200); Creatinine, Serum 0.84 mg/dL (0.70-1.30); EST Glomerular Filtration Rate 113 mL/min (>60); Est Glom Filt Rate - Afr Amer 136 mL/min (>60); Globulin 3.6 g/dL (2.2-4.2); Glucose 166 mg/dL (74-106); High Density Lipoprotein 49 mg/dL; Protein, Total 7.3 g/dL (6.4-8.2); Sodium Level 139 mmol/L (136-145); Thyroid Stim Hormone (TSH) 3.96 uIU/mL (0.358-3.74); Triglycerides 55 mg/dL; Very Low Density Lipoprotein 11 mg/dL (5-40)
== END | disposition home or self-care (01) ==
PROVIDERS: PCP Internal Medicine; Referring Provider Nurse Practitioner Family; Visit Provider Nurse Practitioner Family
DX: E10.9 Type 1 diabetes mellitus without complications (principal); R79.89 Other specified abnormal findings of blood chemistry
CPT/HCPCS: 36415; 80053; 80061; 82043; 82306; 82570; 84443; 86376

== ENCOUNTER → 2025-03-14 | Outpatient (CLI) | payer OTHER, SELFPAY ==
[2025-03-14 08:59] LABS: AST(SGOT) 20 U/L (<=37); Alanine Aminotransfer ALT/SGPT 19 U/L (<=46); Albumin, Serum 4.4 g/dL (3.5-5.0); Alkaline Phosphatase 53 U/L (40-129); Anion Gap 8 (5-15); BUN 13 mg/dL (4-19); BUN/Creat Ratio 16.9 RATIO (10-20); Calcium,Total 9.2 mg/dL (7.6-11.0); Carbon Dioxide 25.4 mmol/L (21.0-32.0); Chloride 105 mmol/L (98-108); Globulin 2.8 g/dL (2.2-4.2); Glucose 129 mg/dL (70-99); Potassium 5.0 mmol/L (3.3-5.1); Vitamin D,25 Hydroxy 28.6 ng/mL (30-100)
[2025-03-14 09:16] LABS: Cholesterol 191 mg/dL (<=200); Low Density Lipoprotein Calc. 122 mg/dL; Triglycerides 82 mg/dL; Very Low Density Lipoprotein 16 mg/dL (5-40); cholesterol:hdl ratio screen 3.64
[2025-03-14 09:35] LABS: Creatinine, Urine (random) 104.00 mg/dL (39.00-259.00); Microalbumin,Random Urine < 12.0 mg/L (<20 mg/L)
== END | disposition home or self-care (01) ==
PROVIDERS: PCP Internal Medicine; Referring Provider Nurse Practitioner Family; Visit Provider Nurse Practitioner Family
DX: E10.65 Type 1 diabetes mellitus with hyperglycemia (principal)
CPT/HCPCS: 36415; 80053; 80061; 82043; 82306; 82570; 84443